=== PATIENT | male | born 1965 | race Caucasian/White ===

== ENCOUNTER 2018-12-17 19:03 | Inpatient (IN) | payer BC, OTHER ==
[2018-12-17 21:40] VITALS: BMI 26.2
--- NOTE | 2018-12-17 22:50 | CP.PCM.HP ---
History of Present Illness - History of Present Illness History of Present Illness: PMD: None Chief Complaint: left side weakness The Patient was seen and examined in the Rehab Unit HPI: The hx is obtained from the patient and after review of the medical records. He is a 53 years old male referred from the [facility] to the [facility] for continued care and rehab. He has no significant hx and was admitted at the [facility] on 12/13/18 with left side weakness and diagnosed with acute CVA. At present he still has weakness to the left face, left upper and lower extremities. No headache, dizziness, nausea, vomits, Palpitation nor SOB. PMH: CVA with left side weakness PSH: Denies SH: Smokes 1.5 PPD for 20 years; Occasional Alcohol use; No illegal drug use FH: Significant for Mother with DM and father with Stroke Allergies: NKDA Medication: Reviewed Present on Admission - Present on Admission Any Indicators Present on Admission: No History of DVT/PE: No History of Uncontrolled Diabetes: No Urinary Catheter: No Decubitus Ulcer Present: No Review of Systems - Constitutional Constitutional: absent: Anorexia, Chills, Fever, Headache - EENT Eyes: Requires Corrective Lenses. absent: Blurred Vision, Floaters Ears: absent: Decreased Hearing, Ear Discharge, Tinnitus Nose/Mouth/Throat: absent: Epistaxis, Post Nasal Drip - Cardiovascular Cardiovascular: absent: Chest Pain, Dyspnea, Edema - Respiratory Respiratory: absent: Cough, Dyspnea, Wheezing, Stridor - Gastrointestinal Gastrointestinal: absent: Abdominal Pain, Constipation, Diarrhea, Nausea, Vomiting - Musculoskeletal Musculoskeletal: Muscle Weakness. absent: Arthralgias, Back Pain - Integumentary Integumentary: absent: Pruritus, Rash, Skin Ulcer, Sores, Striae, Swelling - Neurological Neurological: Focal Weakness, Weakness. absent: Confusion, Dizziness, Numbness, Headaches - Psychiatric Psychiatric: absent: Anxiety, Depression, Panic Attacks - Endocrine Endocrine: absent: Palpitations, Polydipsia, Polyphagia, Polyuria - Hematologic/Lymphatic Hematologic: absent: Easy Bleeding, Easy Bruising Past Patient History - Past Medical History & Family History Past Medical History?: Yes - Past Social History Smoking Status: Heavy Smoker > 10 Cigarettes Daily Chewing Tobacco Use: No Cigar Use: No Alcohol: Occasional Drugs: Denies - CARDIAC Hx Hypertension: Yes - PULMONARY Hx Respiratory Disorders: No - NEUROLOGICAL HX Cerebrovascular Accident: Yes - HEENT Hx HEENT Problems: No - RENAL Hx Chronic Kidney Disease: No - ENDOCRINE/METABOLIC Hx Endocrine Disorders: No - HEMATOLOGICAL/ONCOLOGICAL Hx Blood Disorders: No - INTEGUMENTARY Hx Dermatological Problems: No - MUSCULOSKELETAL/RHEUMATOLOGICAL Hx Musculoskeletal Disorders: No - GASTROINTESTINAL Hx Gastrointestinal Disorders: No - GENITOURINARY/GYNECOLOGICAL Hx Genitourinary Disorders: No - PSYCHIATRIC Hx Psychophysiologic Disorder: No - SURGICAL HISTORY Hx Surgeries: No - ANESTHESIA Hx Anesthesia: No Meds Allergies/Adverse Reactions: Allergies Allergy/AdvReac Type Severity Reaction Status Date / Time No Known Allergies Allergy Verified 12/17/18 21:40 Physical Exam - Constitutional Appears: No Acute Distress - Head Exam Head Exam: ATRAUMATIC - Eye Exam Eye Exam: EOMI, Normal appearance - ENT Exam ENT Exam: Mucous Membranes Moist, Normal Exam - Neck Exam Neck exam: Positive for: Full Rom, Normal Inspection. Negative for: Lymphadenopathy, Tenderness - Respiratory Exam Respiratory Exam: Clear to Auscultation Bilateral. absent: Rales, Rhonchi, Wheezes - Cardiovascular Exam Cardiovascular Exam: REGULAR RHYTHM, RRR, +S1, +S2 - GI/Abdominal Exam GI & Abdominal Exam: Normal Bowel Sounds, Soft. absent: Mass, Organomegaly, Tenderness - Rectal Exam Rectal Exam: Deferred - Extremities Exam Extremities exam: Positive for: normal inspection. Negative for: full ROM, joint swelling - Back Exam Back exam: NORMAL INSPECTION. absent: CVA tenderness (L), CVA tenderness (R) - Neurological Exam Additional comments: Awake and alert and oriented. Left facial droop with tongue deviated to the left Motor strength 0/5 at the left upper extremity with the lower extremity 3/5 - Psychiatric Exam Psychiatric exam: Normal Affect, Normal Mood - Skin Skin Exam: Dry, Intact, Normal Color, Warm Results - Imaging and Cardiology MRI - head Status: Report reviewed by me Additional comment: Recent Infarct in right bundy radiata. Old lacunar infarct also seen. Assessment & Plan - Assessment and Plan (Free Text) Plan: 53 years old male referred from the [facility] to the [facility] for continued care and rehab. He has no significant hx and was admitted at the [facility] on 12/13/18 with left side weakness and diagnosed with acute CVA. At present he still has weakness to the left face, left upper and lower extremities. No headache, dizziness, nausea, vomits, Palpitation nor SOB. #. Acute CVA - Consult Physiatry Dr Mora - ASA - Lipitor - OT/PT #. HTN - Lisinopril- Amlodipine - Follow Blood pressures #. Nicotine addiction - Nicotine Patch #. DVT prophylaxis with Lovenox #. Code Status: Full - Date & Time Date: 12/17/18 Time: 22:50
[2018-12-18 06:22] LABS: BASO % 0.5 % (0.0-2.0); EOS # 0.1 K/uL (0.0-0.7); EOS % 1.7 % (0.0-4.0); HEMOGLOBIN 11.1 g/dL (12.0-18.0); LYMPH # 2.8 K/uL (1.0-4.3); LYMPH % 37.8 % (20.0-40.0); MEAN CELL VOLUME 87.8 fl (80.0-94.0); MEAN CORPUSCULAR HEMOGLOBIN 28.5 pg (27.0-31.0); MEAN CORPUSCULAR HGB CONC 32.5 g/dL (33.0-37.0); MONO # 0.8 K/uL (0.0-0.8); MONO % 10.7 % (0.0-10.0); NEUT # 3.7 K/uL (1.8-7.0); NEUT % 49.3 % (50.0-75.0); NRBC % 0.2 % (0.0-0.0); RBC 3.91 Mil/uL (4.40-5.90); RED CELL DISTRIBUTION WIDTH 15.4 % (11.5-14.5); WHITE BLOOD COUNT 7.5 K/uL (4.8-10.8)
[2018-12-18 06:35] LABS: PROTHROMBIN TIME 11.9 Seconds (9.8-13.1)
[2018-12-18 06:39] LABS: PARTIAL THROMBOPLASTIN TIME 28.9 Seconds (25.6-37.1)
[2018-12-18 06:42] LABS: BLOOD UREA NITROGEN 18 mg/dl (9-20); CALCIUM 9.5 mg/dL (8.4-10.2); GFR NON-AFRICAN AMERICAN > 60
[2018-12-18] MEDS: Enoxaparin 40 mg Syringe SC SCH (09:38)
--- NOTE | 2018-12-18 14:58 | PCM.OPOC ---
Physiatry Overall Plan of Care - Overall Plan of Care Estimated Length of Stay in Weeks: 3 Rehab Impairment: Mobility, Gait, Cognition, Speech, Balance, Coordination Etiologic Diagnosis: Cerebrovascular Accident Rehab/Medical Prognosis: Fair - Anticipated Interventions Physical Therapy:: Yes Occupational Therapy:: Yes Speech Therapy:: Yes Recreational Therapy:: Yes - Therapy Goals Bed Mobility: Supervision Ambulation: Contact Guard Functional Positional Changes:: Independent - Functional Outcomes Functional Outcomes: fair - Discharge Plan Identification of Barriers to Discharge: Cognition Discharge Destination: Home
--- NOTE | 2018-12-18 15:12 | CP.PCM.CON ---
History of Present Illness - History of Present Illness History of Present Illness: 53 year old male with left hemiplegia due to Cva admitted for acute rehab Review of Systems - Neurological Neurological: Abnormal Gait, Lack of Coordination Past Patient History - Past Medical History & Family History Past Medical History?: Yes - Past Social History Smoking Status: Heavy Smoker > 10 Cigarettes Daily Chewing Tobacco Use: No Cigar Use: No Alcohol: Occasional Drugs: Denies - CARDIAC Hx Hypertension: Yes - PULMONARY Hx Respiratory Disorders: No - NEUROLOGICAL HX Cerebrovascular Accident: Yes - HEENT Hx HEENT Problems: No - RENAL Hx Chronic Kidney Disease: No - ENDOCRINE/METABOLIC Hx Endocrine Disorders: No - HEMATOLOGICAL/ONCOLOGICAL Hx Blood Disorders: No - INTEGUMENTARY Hx Dermatological Problems: No - MUSCULOSKELETAL/RHEUMATOLOGICAL Hx Musculoskeletal Disorders: No - GASTROINTESTINAL Hx Gastrointestinal Disorders: No - GENITOURINARY/GYNECOLOGICAL Hx Genitourinary Disorders: No - PSYCHIATRIC Hx Psychophysiologic Disorder: No - SURGICAL HISTORY Hx Surgeries: No - ANESTHESIA Hx Anesthesia: No Meds Allergies/Adverse Reactions: Allergies Allergy/AdvReac Type Severity Reaction Status Date / Time No Known Allergies Allergy Verified 12/17/18 21:40 - Medications Medications: Current Medications Amlodipine Besylate (Norvasc) 10 mg PO DAILY [facility] Last Admin: 12/18/18 09:37 Dose: 10 mg Aspirin (Ecotrin) 81 mg PO DAILY [facility] Last Admin: 12/18/18 09:38 Dose: 81 mg Atorvastatin Calcium (Lipitor) 80 mg PO HS [facility] Docusate Sodium (Colace) 100 mg PO BID [facility] Last Admin: 12/18/18 09:37 Dose: 100 mg Enoxaparin Sodium (Lovenox) 40 mg SC DAILY [facility]; Protocol Last Admin: 12/18/18 09:38 Dose: 40 mg Ferrous Sulfate (Feosol) 325 mg PO BID [facility] Last Admin: 12/18/18 09:38 Dose: 325 mg Lisinopril (Zestril) 20 mg PO DAILY [facility] Last Admin: 12/18/18 09:37 Dose: 20 mg Nicotine (Nicoderm Cq) 1 patch TD DAILY [facility] Last Admin: 12/18/18 09:36 Dose: 1 patch Temazepam (Restoril) 15 mg PO HS PRN PRN Reason: Insomnia Last Admin: 12/17/18 23:41 Dose: 15 mg Physical Exam - Constitutional Appears: Well - Head Exam Head Exam: ATRAUMATIC, NORMAL INSPECTION, NORMOCEPHALIC - Eye Exam Eye Exam: EOMI, Normal appearance, PERRL Pupil Exam: NORMAL ACCOMODATION, PERRL - ENT Exam ENT Exam: Mucous Membranes Moist, Normal Exam - Neck Exam Neck exam: Positive for: Normal Inspection - Respiratory Exam Respiratory Exam: Clear to Auscultation Bilateral, NORMAL BREATHING PATTERN - Cardiovascular Exam Cardiovascular Exam: REGULAR RHYTHM - GI/Abdominal Exam GI & Abdominal Exam: Normal Bowel Sounds - Rectal Exam Rectal Exam: NORMAL INSPECTION - Exam External exam: NORMAL EXTERNAL EXAM - Extremities Exam Extremities exam: Positive for: normal inspection - Back Exam Back exam: NORMAL INSPECTION Additional comments: left arm and left leg weakness muscle strength trace - Neurological Exam Neurological exam: Alert - Psychiatric Exam Psychiatric exam: Normal Mood - Skin Skin Exam: Intact Results - Vital Signs Recent Vital Signs: Last Vital Signs Temp 97.7 F 12/18/18 07:38 Pulse 79 12/18/18 09:37 Resp 20 12/18/18 07:38 BP 108/79 12/18/18 09:37 Pulse Ox 96 12/18/18 07:38 - Labs Result Diagrams: 12/18/18 05:25 12/18/18 05:25 Labs: Laboratory Results - last 24 hr 12/18/18 12/18/18 12/18/18 05:25 05:25 05:25 WBC 7.5 RBC 3.91 L Hgb 11.1 L Hct 34.3 L MCV 87.8 MCH 28.5 MCHC 32.5 L RDW 15.4 H Plt Count 459 H MPV 7.0 L Neut % (Auto) 49.3 L Lymph % (Auto) 37.8 Dickson % (Auto) 10.7 H Eos % (Auto) 1.7 Baso % (Auto) 0.5 Neut # (Auto) 3.7 Lymph # (Auto) 2.8 Dickson # (Auto) 0.8 Eos # (Auto) 0.1 Baso # (Auto) 0.0 PT 11.9 INR 1.0 APTT 28.9 Sodium 138 Potassium 3.9 Chloride 101 Carbon Dioxide 29 Anion Gap 12 BUN 18 Creatinine 0.8 Est GFR ( Amer) > 60 Est GFR (Non-Af Amer) > 60 Random Glucose 100 Calcium 9.5 Assessment & Plan (1) CVA (cerebral vascular accident) Assessment and Plan: left hemiplegia due to Cva plan for physical, occupational, rec and speech therapy Status: Acute
--- NOTE | 2018-12-18 15:16 | CP.PCM.PN ---
Subjective - Date & Time of Evaluation Date of Evaluation: 12/18/18 Time of Evaluation: 13:00 - Subjective Subjective: patient freindly complaints of left arm and leg weakness Objective - Vital Signs/Intake and Output Vital Signs (last 24 hours): Temp Pulse Resp BP Pulse Ox 97.7 F 79 20 108/79 96 12/18/18 07:38 12/18/18 09:37 12/18/18 07:38 12/18/18 09:37 12/18/18 07:38 - Medications Medications: Current Medications Amlodipine Besylate (Norvasc) 10 mg PO DAILY [facility] Last Admin: 12/18/18 09:37 Dose: 10 mg Aspirin (Ecotrin) 81 mg PO DAILY [facility] Last Admin: 12/18/18 09:38 Dose: 81 mg Atorvastatin Calcium (Lipitor) 80 mg PO HS [facility] Docusate Sodium (Colace) 100 mg PO BID [facility] Last Admin: 12/18/18 09:37 Dose: 100 mg Enoxaparin Sodium (Lovenox) 40 mg SC DAILY [facility]; Protocol Last Admin: 12/18/18 09:38 Dose: 40 mg Ferrous Sulfate (Feosol) 325 mg PO BID [facility] Last Admin: 12/18/18 09:38 Dose: 325 mg Lisinopril (Zestril) 20 mg PO DAILY [facility] Last Admin: 12/18/18 09:37 Dose: 20 mg Nicotine (Nicoderm Cq) 1 patch TD DAILY [facility] Last Admin: 12/18/18 09:36 Dose: 1 patch Temazepam (Restoril) 15 mg PO HS PRN PRN Reason: Insomnia Last Admin: 12/17/18 23:41 Dose: 15 mg - Labs Labs: 12/18/18 05:25 12/18/18 05:25 PT 11.9 Seconds (9.8-13.1) 12/18/18 05:25 INR 1.0 12/18/18 05:25 APTT 28.9 Seconds (25.6-37.1) 12/18/18 05:25 - Constitutional Appears: Well - Head Exam Head Exam: ATRAUMATIC, NORMAL INSPECTION, NORMOCEPHALIC - Eye Exam Eye Exam: EOMI, Normal appearance, PERRL Pupil Exam: NORMAL ACCOMODATION - ENT Exam ENT Exam: Mucous Membranes Moist, Normal Exam - Neck Exam Neck Exam: Full ROM, Normal Inspection - Respiratory Exam Respiratory Exam: Clear to Ausculation Bilateral, NORMAL BREATHING PATTERN - Cardiovascular Exam Cardiovascular Exam: REGULAR RHYTHM - GI/Abdominal Exam GI & Abdominal Exam: Soft, Normal Bowel Sounds - Rectal Exam Rectal Exam: NORMAL INSPECTION - Exam External exam: NORMAL EXTERNAL EXAM - Extremities Exam Extremities Exam: Full ROM, Normal Capillary Refill - Back Exam Back Exam: NORMAL INSPECTION - Neurological Exam Neurological Exam: Alert, Awake Neuro motor strength exam: Left Upper Extremity: 0, Left Lower Extremity: 2/1 - Psychiatric Exam Psychiatric exam: Normal Affect, Normal Mood - Skin Skin Exam: Dry, Intact Assessment and Plan (1) CVA (cerebral vascular accident) Assessment & Plan: plan for physical, occupational rec and speech therapy electric stim Status: Acute
[2018-12-19] MEDS: Enoxaparin 40 mg Syringe SC SCH (08:10)
[2018-12-20] MEDS: Enoxaparin 40 mg Syringe SC SCH (08:18)
[2018-12-21] MEDS ORDERED: Alum-Mag Hydrox-Simethicone Susp (30 mL) PO ONE (02:13)
[2018-12-21 08:34] LABS: HEMOGLOBIN 12.2 g/dL (12.0-18.0); MEAN CELL VOLUME 88.3 fl (80.0-94.0); MEAN CORPUSCULAR HEMOGLOBIN 28.2 pg (27.0-31.0); MEAN CORPUSCULAR HGB CONC 31.9 g/dL (33.0-37.0); RBC 4.32 Mil/uL (4.40-5.90); RED CELL DISTRIBUTION WIDTH 15.9 % (11.5-14.5); WHITE BLOOD COUNT 8.3 K/uL (4.8-10.8)
[2018-12-21 08:44] LABS: BLOOD UREA NITROGEN 16 mg/dl (9-20); CALCIUM 9.2 mg/dL (8.4-10.2); GFR NON-AFRICAN AMERICAN > 60
[2018-12-21] MEDS: Enoxaparin 40 mg Syringe SC SCH (08:44)
--- NOTE | 2018-12-21 13:06 | CP.PCM.PN ---
<Francesca Dubon - Last Filed: 12/21/18 13:08> Subjective - Date & Time of Evaluation Date of Evaluation: 12/21/18 Time of Evaluation: 13:04 - Subjective Subjective: Patient seen and examined at bedside. Patient reports feeling well and denies any active complaints. Reports regular BM and good appetite. Denies chest pain, shortness of breath, abdominal pain, dysuria, constipation or diarrhea. Patient is actively participating in therapy. Objective - Vital Signs/Intake and Output Vital Signs (last 24 hours): Temp Pulse Resp BP Pulse Ox 97.7 F 89 20 123/65 99 12/21/18 07:57 12/21/18 08:56 12/21/18 07:57 12/21/18 08:46 12/21/18 07:57 - Medications Medications: Current Medications Amlodipine Besylate (Norvasc) 10 mg PO DAILY [facility] Last Admin: 12/21/18 08:45 Dose: 10 mg Aspirin (Ecotrin) 81 mg PO DAILY [facility] Last Admin: 12/21/18 08:44 Dose: 81 mg Atorvastatin Calcium (Lipitor) 80 mg PO HS [facility] Last Admin: 12/20/18 21:40 Dose: 80 mg Docusate Sodium (Colace) 100 mg PO BID [facility] Last Admin: 12/21/18 08:44 Dose: 100 mg Enoxaparin Sodium (Lovenox) 40 mg SC DAILY [facility]; Protocol Last Admin: 12/21/18 08:44 Dose: 40 mg Ferrous Sulfate (Feosol) 325 mg PO BID [facility] Last Admin: 12/21/18 08:45 Dose: 325 mg Lisinopril (Zestril) 20 mg PO DAILY [facility] Last Admin: 12/21/18 08:46 Dose: 20 mg Nicotine (Nicoderm Cq) 1 patch TD DAILY [facility] Last Admin: 12/21/18 08:45 Dose: 1 patch Temazepam (Restoril) 30 mg PO HS PRN PRN Reason: Insomnia Last Admin: 12/20/18 21:49 Dose: 30 mg - Labs Labs: 12/21/18 07:45 12/21/18 07:45 PT 11.9 Seconds (9.8-13.1) 12/18/18 05:25 INR 1.0 12/18/18 05:25 APTT 28.9 Seconds (25.6-37.1) 12/18/18 05:25 - Constitutional Appears: Well, Non-toxic, No Acute Distress - Eye Exam Eye Exam: Normal appearance - ENT Exam ENT Exam: Mucous Membranes Moist - Respiratory Exam Respiratory Exam: Clear to Ausculation Bilateral, NORMAL BREATHING PATTERN. absent: Accessory Muscle Use, Chest Wall Tenderness, Decreased Breath Sounds, Prolonged Expiratory Phase, Rales, Rhonchi, Wheezes, Respiratory Distress, Stridor - Cardiovascular Exam Cardiovascular Exam: REGULAR RHYTHM, RRR, +S1, +S2. absent: Clicks, JVD, Rubs, +S4, Murmur - GI/Abdominal Exam GI & Abdominal Exam: Soft, Normal Bowel Sounds. absent: Distended, Firm, Guarding, Rigid, Tenderness, Rebound - Extremities Exam Extremities Exam: Normal Capillary Refill, Normal Inspection. absent: Joint Swelling, Pedal Edema, Tenderness - Neurological Exam Neurological Exam: Alert, Awake Neuro motor strength exam: Left Upper Extremity: 3, Right Upper Extremity: 5, Left Lower Extremity: 3, Right Lower Extremity: 5 - Skin Skin Exam: Dry, Intact, Normal Color, Warm Assessment and Plan - Assessment and Plan (Free Text) Assessment: 53 years old male referred from the [facility] to the [facility] for continued care and rehab. He has no significant hx and was admitted at the [facility] on 12/13/18 with left side weakness and diagnosed with acute CVA. At present he still has weakness to the left face, left upper and lower extremities. Plan: 1. Acute CVA - continue therapy - ASA - Lipitor 2. HTN - Lisinopril- Amlodipine - Follow Blood pressures 3. Nicotine addiction - Nicotine Patch 4. DVT prophylaxis with Lovenox 5. Code Status: Full code <Hyacinth Casas - Last Filed: 12/21/18 17:55> Objective - Vital Signs/Intake and Output Vital Signs (last 24 hours): Temp Pulse Resp BP Pulse Ox 97.7 F 89 20 123/65 99 12/21/18 07:57 12/21/18 08:56 12/21/18 07:57 12/21/18 08:46 12/21/18 07:57 - Medications Medications: Current Medications Amlodipine Besylate (Norvasc) 10 mg PO DAILY [facility] Last Admin: 12/21/18 08:45 Dose: 10 mg Aspirin (Ecotrin) 81 mg PO DAILY [facility] Last Admin: 12/21/18 08:44 Dose: 81 mg Atorvastatin Calcium (Lipitor) 80 mg PO HS [facility] Last Admin: 12/20/18 21:40 Dose: 80 mg Docusate Sodium (Colace) 100 mg PO BID [facility] Last Admin: 12/21/18 17:23 Dose: 100 mg Enoxaparin Sodium (Lovenox) 40 mg SC DAILY [facility]; Protocol Last Admin: 12/21/18 08:44 Dose: 40 mg Ferrous Sulfate (Feosol) 325 mg PO BID [facility] Last Admin: 12/21/18 17:23 Dose: 325 mg Lisinopril (Zestril) 20 mg PO DAILY [facility] Last Admin: 12/21/18 08:46 Dose: 20 mg Nicotine (Nicoderm Cq) 1 patch TD DAILY [facility] Last Admin: 12/21/18 08:45 Dose: 1 patch Temazepam (Restoril) 30 mg PO HS PRN PRN Reason: Insomnia Last Admin: 12/20/18 21:49 Dose: 30 mg - Labs Labs: 12/21/18 07:45 12/21/18 07:45 PT 11.9 Seconds (9.8-13.1) 12/18/18 05:25 INR 1.0 12/18/18 05:25 APTT 28.9 Seconds (25.6-37.1) 12/18/18 05:25 Attending/Attestation - Attestation I have personally seen and examined this patient.: Yes I have fully participated in the care of the patient.: Yes I have reviewed all pertinent clinical information, including history, physical exam and plan: Yes
[2018-12-22] MEDS ORDERED: Alum-Mag Hydrox-Simethicone Susp (30 mL) PO ONE (00:55)
[2018-12-22] MEDS: Enoxaparin 40 mg Syringe SC SCH (09:06)
[2018-12-22] MEDS: Alum-Mag Hydrox-Simethicone Susp (30 mL) PO PRN (21:05)
[2018-12-23] MEDS: Enoxaparin 40 mg Syringe SC SCH (09:10)
--- NOTE | 2018-12-23 12:22 | PCM.PSYTMC ---
Acute Rehab Team Conference - - Vital Signs: Vital Signs (Last 8 Hours): Vital Signs 12/23/18 12/23/18 12/23/18 09:00 09:10 09:11 Temperature 98 F 98.0 F Pulse Rate 94 H 94 H 94 H Respiratory 20 20 Rate Blood Pressure 119/66 119/66 119/66 O2 Sat by Pulse 99 Oximetry 12/23/18 09:12 Temperature Pulse Rate 94 H Respiratory Rate Blood Pressure 119/66 O2 Sat by Pulse Oximetry Pain: 0 - Precautions: Precautions: Fall Prevention - Consults: Comment: jose juan - Toileting: Toileting: Moderate Assistance - Bladder Management: Bladder Pattern: Normal Voiding Method: Urinal Bladder Management: Independent - Transfers: Transfers: Moderate Assistance - ADL's: ADL's: Moderate Assistance - Patient/Family Teaching: Other Intervention:: safety - Provider: Registered Nurse:: Carolina Gray Physical Therapy - Bed Mobility Bed Mobility: Contact Guard - Transfers Wheelchair to Mat: Minimal Assistance Sit to Stand: Contact Guard - Ambulation Level of Assistance: Contact Guard, Minimal Assistance Distance (ft.): 115 Assistive Devices: Narrow base quad cane - Stair Negotiation Stairs: Level of Assistance: Minimal Assistance Number of Stairs: 6 Handrails: Right - Standing Balance Static Stand: Contact Guard Assist - Pain Pain (assessed during therapy session): 0 - Insight/Carryover Insight/Carryover: Good - Patient/Family Education Comment: CVA recovery, safety, POC - Assessment/Plan Assessment: t participated in 90 minute PT tx sessions focusing on BLE strengthening exercises, balance and endurance activities, and functional mobility training. Pt requires cga/min A for ambulation with NBQC. Pt will continue to benefit from skilled PT interventions to address deficits, reduce fall risk, and maximize functional independence. - Goals Timeframe: 3 weeks Goals: Sit < > supine mod I. Sit < > stand transfers mod I. Pt will ambulate 150 ft with NBQC and supervision. Pt will ascend/descend flight of stairs with handrail and supervision - Provider Physical Therapist:: Madeline Rincon License Number:: [id number] Occupational Therapy - Arousal/Attention/Orientation Level of Consciousness: Awake, Alert Patient Orientation: Person, Place, Time, Appropriate to Age, Appropriate to Situation, Disoriented Assessment Comment: -anxious and concern about overall function and implications for future. -pt provided with emotional support and reassuarnec - ADL/IADL Self Feeding: Supervision, Verbal Cues, Set-up Help Grooming: Supervision, Verbal Cues, Set-up Help Dressing-Upper Ext: Verbal Cues, Contact Guard, Minimal Assistance Dressing-Lower Ext: Verbal Cues, Set-up Help, Contact Guard, Minimal Assistance Comment: -pt uses reanna-techniques for upper/lower body dressing, dressing L side first - Sitting Balance Static Sitting: Supervision Dynamic Sitting: Reaches across midline, Reaches out of base of support, Reaches within base of support, Contact Guard Assist Comment: seated unsupported - Transfers Wheelchair to Bed Transfers: Verbal Cues, Minimal Assistance Toilet Transfers: Verbal Cues, Minimal Assistance Comment: shower transfer: TBA - Wheelchair Management Level of Assistance: Verbal Cues, Set-up Help, Minimal Assistance Distance (ft.): 50 - Upper Extremity Status Right Upper Extremity Comment: P/ARROM is WFLS--strength 5/5 Left Upper Extremity Comment: PROM is WFLS: L shoulder flex: 2/5, abd 2/5. L shoulder elevators: 3-/5. L elbow flex: 3-/5, L elbow extension 2+/5. L forearm supination/pronation: 2/5. L wrist/digit-trace, 1/5. +flexion synergy patttern - Pain Pain (assessed during therapy session): 0 - Insight/Carryover Insight/Carryover: Good - Patient/Family Education Comment: -rehab/OT goals, plan of care. -adl partcipation in recovery process. -functional transfers/mobility/self care using compensatory stategies. -w/c management/propulsion. -RUE management/HEP. -safety--use of call for assistance. -energy conservation/work simplification strategies. -stroke handout - Assessment/Plan Assessment: Patient is a53 year old male with dx: acute CVA. *Precautions: falls(w/c & bed alarms), cardiac, safety. Pt with the following impairments: - impaired motor control/strength LUE/LLE. -impaired balance/postural control. - impaired safety awareness. -impaired activity tolerance/endurance. -impaired overall strength--which impact on function in self care, transfers/mobility and Iadls. Pt will continue to benefit from skilled Occupational Therapy to address functional impairments, maxmize function in self care, transfers/mobility using adaptive/compensatory strategies, increase RUE strength/motor control/coordination. Will continue to trial E-stim to increase motor control in LUE. Pt demonstrates increased strength in R shoulder flexion, eelbow flexion/extension(against garvity), shoulder elevation(against gravity), forearm supination/pronation, however no wrist or digit AROMnoted at this time. Pt uses flexion synergy pattern, thus will focus on isolating movements for normal patterns/function. *Goal: Mod I for self care, transfers/mobility and Iadls with assistive device - Goals Timeframe: 8 days Comment: -FEEDING:Mod I. -GROOMING: I/setup. -UPPER BODY DRESSING: I/setup--reanna techniques prn. -LOWER BODY DRESSING:Supervision/setup. - TOILETING: Supervision. -BATHING: min assist and verbal cues seated. -TRANSFERS:<->bed, commode, w/c and other surfaces with CS/Supervsiion and verbal cues. -W/C MANAGEMENT/PROPULSION: 150 feet with Mod I, manage B w/c brakes with Mod I. -GATHER/TRANSPORTS ITEMS: CS and verbal cues with assistive device prn - Provider Occupational Therapist:: Ariela Madden License Number: [id number] Speech Therapy - Consult Information Patient on Program: Yes Medical Diagnosis: CVA Treatment Diagnosis: functional oropharyngeal swallow; minimal L facial droop - Assessment Comment: WFL - Plan Assessment: Tatiana Flynn presents with functional oral swallow and pharyngeal swallow judged to be WFL; he is tolerating current diet of regular solids and thin liquids without overt difficulty. Pt with minimal L facial droop, though is able to complete oral motor exercises independently. Therefore, pt will be discharged from dysphagia tx at this time; discharge instructions, safe swallow strategies, and home exercise program were discussed with the pt with reciprocal comprehension verbally expressed. Plan: Discharge Dysphagia Therapy Recommendations: Discharge dysphagia tx; continue regular diet with thin liquids - Provider Therapist: Sandi Sanchez License Number: [id number] Recreational Therapy - Participation Participation: Participates in Individual and/or Group Sessions - Attendance Attendance: 3-5 times per week - Activities Leisure Activities: Cards and Games - Socialization Level of Socialization: Initiates/interacts freely with care givers and peer - Assessment Assessment/Plan: Pt is agreeable to participate in 1:1 recreation therapy sessions following encouragement. Pt was oriented to multiple-step direction following related leisure tasks such as connect four and kings in the corner card task. Pt requires min verbal cues at times for error recognition. Pt demonstrates improved carryover of task rules, turn taking, and arousal level. Pt would benefit from continued participation in recreation therapy sessions to improve activity tolerance level, direction following, and overall mood state. Problems Currently Limiting Participation: L side UE and LE weakness, decrease leisure awareness level Goals and Time Frame: Pt will be encouraged to participate in 1:1 and group recreation therapy sessions 3-5x week to improve activity tolerance level, leisure awareness level, direction following, and overall mood state. - Provider Therapist: Mavis Rehman Nutrition - Current Diet Current Diet/Supplement/Feedings: Heart healthy thin liquids. no pork as per patient's request - Appetite Percent Meal Consumed: 50-74% - Assessment/Goals/Time Frame Assessments/Goals/Time Frame: Pt at moderate nutritional risk. goal: 1. Pt to consume 75-100% of meals. Follow-up due on 12/25/2018 - Provider Provider: Qian Alonzo Case Management - Psychosocial Assessment Support Systems: Susan Flynn ()- [phone] Psychological Interventions/Needs: Patient is AAOx3 and able to verbalize needs. Discharge Concerns: Patient's RUE is flacid at this time and patient is right handed. Patient/Family Meetin. Goal: Modified Independent 2. Plan: home with VNS pending progress 3. DME needs 4. f/u appts 5. work with patient on solidifying a PMD 6. caregiver training with daughter? 7. continued emotional support - Provider Provider: Zuleima Horn License Number: [id number] Rehabilitation Plan - Treatment Plan Treatment Plan: Physical Therapy, Occupational Therapy, Speech, Dietary, Patient/Family Education - Recommendation Recommendation: Physical Therapy, Occupational Therapy, Speech, Dietary, Patient/Family Education - Discharge Plan Discharge to: Home (Dc with family at present jan 02 dc later if possible)
--- NOTE | 2018-12-23 13:01 | CP.PCM.PN ---
Subjective - Date & Time of Evaluation Date of Evaluation: 12/19/18 Time of Evaluation: 11:00 - Subjective Subjective: no acute complaints at present Objective - Vital Signs/Intake and Output Vital Signs (last 24 hours): Temp Pulse Resp BP Pulse Ox 98.0 F 94 H 20 119/66 99 12/23/18 09:10 12/23/18 09:12 12/23/18 09:10 12/23/18 09:12 12/23/18 09:10 - Medications Medications: Current Medications Al Hydrox/Mg Hydrox/Simethicone (Maalox Plus 30 Ml) 30 ml PO Q6 PRN PRN Reason: Indigestion / Heartburn Last Admin: 12/22/18 21:05 Dose: 30 ml Amlodipine Besylate (Norvasc) 10 mg PO DAILY [facility] Last Admin: 12/23/18 09:11 Dose: Not Given Aspirin (Ecotrin) 81 mg PO DAILY [facility] Last Admin: 12/23/18 09:10 Dose: 81 mg Atorvastatin Calcium (Lipitor) 80 mg PO HS [facility] Last Admin: 12/22/18 21:06 Dose: 80 mg Docusate Sodium (Colace) 100 mg PO BID [facility] Last Admin: 12/23/18 09:09 Dose: 100 mg Enoxaparin Sodium (Lovenox) 40 mg SC DAILY [facility]; Protocol Last Admin: 12/23/18 09:10 Dose: 40 mg Ferrous Sulfate (Feosol) 325 mg PO BID [facility] Last Admin: 12/23/18 09:10 Dose: 325 mg Lisinopril (Zestril) 20 mg PO DAILY [facility] Last Admin: 12/23/18 09:12 Dose: Not Given Nicotine (Nicoderm Cq) 1 patch TD DAILY [facility] Last Admin: 12/23/18 09:10 Dose: 1 patch Temazepam (Restoril) 30 mg PO HS PRN PRN Reason: Insomnia Last Admin: 12/22/18 22:24 Dose: 30 mg - Labs Labs: 12/21/18 07:45 12/21/18 07:45 PT 11.9 Seconds (9.8-13.1) 12/18/18 05:25 INR 1.0 12/18/18 05:25 APTT 28.9 Seconds (25.6-37.1) 12/18/18 05:25 - Constitutional Appears: Well - Head Exam Head Exam: ATRAUMATIC, NORMAL INSPECTION, NORMOCEPHALIC - Eye Exam Eye Exam: EOMI, Normal appearance, PERRL Pupil Exam: NORMAL ACCOMODATION - ENT Exam ENT Exam: Mucous Membranes Moist, Normal Exam - Neck Exam Neck Exam: Full ROM, Normal Inspection - Respiratory Exam Respiratory Exam: Clear to Ausculation Bilateral, NORMAL BREATHING PATTERN - Cardiovascular Exam Cardiovascular Exam: REGULAR RHYTHM - GI/Abdominal Exam GI & Abdominal Exam: Soft, Normal Bowel Sounds - Rectal Exam Rectal Exam: NORMAL INSPECTION - Extremities Exam Extremities Exam: Full ROM, Normal Capillary Refill, Normal Inspection - Back Exam Back Exam: NORMAL INSPECTION - Neurological Exam Neurological Exam: Alert, Awake Neuro motor strength exam: Left Upper Extremity: 2/1, Left Lower Extremity: 2/1 - Psychiatric Exam Psychiatric exam: Normal Affect, Normal Mood - Skin Skin Exam: Dry, Intact Assessment and Plan (1) CVA (cerebral vascular accident) Assessment & Plan: plan for PT, OT rec and ST Status: Acute
--- NOTE | 2018-12-23 13:03 | CP.PCM.PN ---
Subjective - Date & Time of Evaluation Date of Evaluation: 12/22/18 Time of Evaluation: 13:00 - Subjective Subjective: no acute complaints of pain Objective - Vital Signs/Intake and Output Vital Signs (last 24 hours): Temp Pulse Resp BP Pulse Ox 98.0 F 94 H 20 119/66 99 12/23/18 09:10 12/23/18 09:12 12/23/18 09:10 12/23/18 09:12 12/23/18 09:10 - Medications Medications: Current Medications Al Hydrox/Mg Hydrox/Simethicone (Maalox Plus 30 Ml) 30 ml PO Q6 PRN PRN Reason: Indigestion / Heartburn Last Admin: 12/22/18 21:05 Dose: 30 ml Amlodipine Besylate (Norvasc) 10 mg PO DAILY [facility] Last Admin: 12/23/18 09:11 Dose: Not Given Aspirin (Ecotrin) 81 mg PO DAILY [facility] Last Admin: 12/23/18 09:10 Dose: 81 mg Atorvastatin Calcium (Lipitor) 80 mg PO HS [facility] Last Admin: 12/22/18 21:06 Dose: 80 mg Docusate Sodium (Colace) 100 mg PO BID [facility] Last Admin: 12/23/18 09:09 Dose: 100 mg Enoxaparin Sodium (Lovenox) 40 mg SC DAILY [facility]; Protocol Last Admin: 12/23/18 09:10 Dose: 40 mg Ferrous Sulfate (Feosol) 325 mg PO BID [facility] Last Admin: 12/23/18 09:10 Dose: 325 mg Lisinopril (Zestril) 20 mg PO DAILY [facility] Last Admin: 12/23/18 09:12 Dose: Not Given Nicotine (Nicoderm Cq) 1 patch TD DAILY [facility] Last Admin: 12/23/18 09:10 Dose: 1 patch Temazepam (Restoril) 30 mg PO HS PRN PRN Reason: Insomnia Last Admin: 12/22/18 22:24 Dose: 30 mg - Labs Labs: 12/21/18 07:45 12/21/18 07:45 PT 11.9 Seconds (9.8-13.1) 12/18/18 05:25 INR 1.0 12/18/18 05:25 APTT 28.9 Seconds (25.6-37.1) 12/18/18 05:25 - Constitutional Appears: Well - Head Exam Head Exam: ATRAUMATIC, NORMAL INSPECTION, NORMOCEPHALIC - Eye Exam Eye Exam: EOMI, Normal appearance, PERRL Pupil Exam: NORMAL ACCOMODATION - ENT Exam ENT Exam: Mucous Membranes Moist, Normal Exam - Neck Exam Neck Exam: Full ROM, Normal Inspection - Respiratory Exam Respiratory Exam: NORMAL BREATHING PATTERN - Cardiovascular Exam Cardiovascular Exam: REGULAR RHYTHM - GI/Abdominal Exam GI & Abdominal Exam: Soft, Normal Bowel Sounds - Rectal Exam Rectal Exam: NORMAL INSPECTION - Exam External exam: NORMAL EXTERNAL EXAM - Extremities Exam Extremities Exam: Full ROM, Normal Capillary Refill - Back Exam Back Exam: NORMAL INSPECTION - Neurological Exam Neurological Exam: Alert, Awake Neuro motor strength exam: Left Upper Extremity: 2/1, Left Lower Extremity: 2/1 - Psychiatric Exam Psychiatric exam: Normal Affect, Normal Mood - Skin Skin Exam: Dry, Intact Assessment and Plan (1) CVA (cerebral vascular accident) Assessment & Plan: plan for physical, occupational, rec and speech therapy pain eval and skin follow up. Getting return in arm and leg Status: Acute
--- NOTE | 2018-12-23 13:05 | CP.PCM.PN ---
Subjective - Date & Time of Evaluation Date of Evaluation: 12/23/18 Time of Evaluation: 12:00 - Subjective Subjective: no acute complaints of pain, sitting with daughter Objective - Vital Signs/Intake and Output Vital Signs (last 24 hours): Temp Pulse Resp BP Pulse Ox 98.0 F 94 H 20 119/66 99 12/23/18 09:10 12/23/18 09:12 12/23/18 09:10 12/23/18 09:12 12/23/18 09:10 - Medications Medications: Current Medications Al Hydrox/Mg Hydrox/Simethicone (Maalox Plus 30 Ml) 30 ml PO Q6 PRN PRN Reason: Indigestion / Heartburn Last Admin: 12/22/18 21:05 Dose: 30 ml Amlodipine Besylate (Norvasc) 10 mg PO DAILY [facility] Last Admin: 12/23/18 09:11 Dose: Not Given Aspirin (Ecotrin) 81 mg PO DAILY [facility] Last Admin: 12/23/18 09:10 Dose: 81 mg Atorvastatin Calcium (Lipitor) 80 mg PO HS [facility] Last Admin: 12/22/18 21:06 Dose: 80 mg Docusate Sodium (Colace) 100 mg PO BID [facility] Last Admin: 12/23/18 09:09 Dose: 100 mg Enoxaparin Sodium (Lovenox) 40 mg SC DAILY [facility]; Protocol Last Admin: 12/23/18 09:10 Dose: 40 mg Ferrous Sulfate (Feosol) 325 mg PO BID [facility] Last Admin: 12/23/18 09:10 Dose: 325 mg Lisinopril (Zestril) 20 mg PO DAILY [facility] Last Admin: 12/23/18 09:12 Dose: Not Given Nicotine (Nicoderm Cq) 1 patch TD DAILY [facility] Last Admin: 12/23/18 09:10 Dose: 1 patch Temazepam (Restoril) 30 mg PO HS PRN PRN Reason: Insomnia Last Admin: 12/22/18 22:24 Dose: 30 mg - Labs Labs: 12/21/18 07:45 12/21/18 07:45 PT 11.9 Seconds (9.8-13.1) 12/18/18 05:25 INR 1.0 12/18/18 05:25 APTT 28.9 Seconds (25.6-37.1) 12/18/18 05:25 - Constitutional Appears: Well - Head Exam Head Exam: ATRAUMATIC, NORMAL INSPECTION, NORMOCEPHALIC - Eye Exam Eye Exam: EOMI, Normal appearance, PERRL Pupil Exam: NORMAL ACCOMODATION - ENT Exam ENT Exam: Mucous Membranes Moist, Normal Exam - Neck Exam Neck Exam: Full ROM, Normal Inspection - Respiratory Exam Respiratory Exam: NORMAL BREATHING PATTERN - Cardiovascular Exam Cardiovascular Exam: REGULAR RHYTHM - GI/Abdominal Exam GI & Abdominal Exam: Soft, Normal Bowel Sounds - Rectal Exam Rectal Exam: NORMAL INSPECTION - Exam External exam: NORMAL EXTERNAL EXAM - Extremities Exam Extremities Exam: Full ROM, Normal Capillary Refill, Normal Inspection - Back Exam Back Exam: NORMAL INSPECTION - Neurological Exam Neurological Exam: Alert, Awake Neuro motor strength exam: Left Upper Extremity: 2/1, Left Lower Extremity: 3 - Psychiatric Exam Psychiatric exam: Normal Mood - Skin Skin Exam: Dry Assessment and Plan (1) CVA (cerebral vascular accident) Assessment & Plan: status post team, [email or web address] return in arm and leg Dc for JAN 02 but additional days will definately help to gain more goals, possible extension Status: Acute
--- NOTE | 2018-12-23 15:01 | CP.PCM.PN ---
Subjective - Date & Time of Evaluation Date of Evaluation: 12/23/18 Time of Evaluation: 11:00 - Subjective Subjective: Patient seen and examined. Denied any complaint. Objective - Vital Signs/Intake and Output Vital Signs (last 24 hours): Temp Pulse Resp BP Pulse Ox 98.0 F 94 H 20 119/66 99 12/23/18 09:10 12/23/18 09:12 12/23/18 09:10 12/23/18 09:12 12/23/18 09:10 - Medications Medications: Current Medications Al Hydrox/Mg Hydrox/Simethicone (Maalox Plus 30 Ml) 30 ml PO Q6 PRN PRN Reason: Indigestion / Heartburn Last Admin: 12/22/18 21:05 Dose: 30 ml Amlodipine Besylate (Norvasc) 10 mg PO DAILY [facility] Last Admin: 12/23/18 09:11 Dose: Not Given Aspirin (Ecotrin) 81 mg PO DAILY [facility] Last Admin: 12/23/18 09:10 Dose: 81 mg Atorvastatin Calcium (Lipitor) 80 mg PO HS [facility] Last Admin: 12/22/18 21:06 Dose: 80 mg Docusate Sodium (Colace) 100 mg PO BID [facility] Last Admin: 12/23/18 09:09 Dose: 100 mg Enoxaparin Sodium (Lovenox) 40 mg SC DAILY [facility]; Protocol Last Admin: 12/23/18 09:10 Dose: 40 mg Ferrous Sulfate (Feosol) 325 mg PO BID [facility] Last Admin: 12/23/18 09:10 Dose: 325 mg Lisinopril (Zestril) 20 mg PO DAILY [facility] Last Admin: 12/23/18 09:12 Dose: Not Given Nicotine (Nicoderm Cq) 1 patch TD DAILY [facility] Last Admin: 12/23/18 09:10 Dose: 1 patch Temazepam (Restoril) 30 mg PO HS PRN PRN Reason: Insomnia Last Admin: 12/22/18 22:24 Dose: 30 mg - Labs Labs: 12/21/18 07:45 12/21/18 07:45 PT 11.9 Seconds (9.8-13.1) 12/18/18 05:25 INR 1.0 12/18/18 05:25 APTT 28.9 Seconds (25.6-37.1) 12/18/18 05:25 - Constitutional Appears: No Acute Distress - Head Exam Head Exam: ATRAUMATIC - Eye Exam Eye Exam: absent: Scleral icterus - ENT Exam ENT Exam: Mucous Membranes Moist - Neck Exam Neck Exam: absent: Meningismus - Respiratory Exam Respiratory Exam: absent: Rales, Rhonchi, Wheezes, Respiratory Distress - Cardiovascular Exam Cardiovascular Exam: REGULAR RHYTHM, +S1, +S2 - GI/Abdominal Exam GI & Abdominal Exam: Soft. absent: Tenderness - Rectal Exam Rectal Exam: Deferred - Neurological Exam Neurological Exam: Alert, Oriented x3 - Psychiatric Exam Psychiatric exam: Normal Affect - Skin Skin Exam: Dry, Intact Assessment and Plan - Assessment and Plan (Free Text) Assessment: 53 yo male with no significant PMH was [place] [facility] [place] because of acute CVA with left sided weakness. He was transferred to Acute Rehab on 12/17/2018 for continuation of PT/OT. 1. Acute CVA Dr Mora on physiatry consult continue ASA and Lipitor continue PT/OT 2. HTN BP stable continue Lisinopril and Amlodipine 3. DVT prophylaxis continue Lovenox 40mg SC daily
[2018-12-23] MEDS: Alum-Mag Hydrox-Simethicone Susp (30 mL) PO PRN (17:52)
[2018-12-24] MEDS: Alum-Mag Hydrox-Simethicone Susp (30 mL) PO PRN ×2 (00:54→18:30)
[2018-12-24 07:18] LABS: MEAN CELL VOLUME 85.8 fl (80.0-94.0); MEAN CORPUSCULAR HEMOGLOBIN 28.7 pg (27.0-31.0); MEAN CORPUSCULAR HGB CONC 33.5 g/dL (33.0-37.0); RBC 4.19 Mil/uL (4.40-5.90); RED CELL DISTRIBUTION WIDTH 15.8 % (11.5-14.5); WHITE BLOOD COUNT 7.3 K/uL (4.8-10.8)
[2018-12-24 07:29] LABS: BLOOD UREA NITROGEN 20 mg/dl (9-20); CALCIUM 9.5 mg/dL (8.4-10.2); GFR NON-AFRICAN AMERICAN > 60
[2018-12-24] MEDS: Enoxaparin 40 mg Syringe SC SCH (08:13)
--- NOTE | 2018-12-25 08:42 | CP.PCM.CON ---
History of Present Illness - History of Present Illness History of Present Illness: Pt is a 53 year old male admitted to [facility] and referred to the publicity writer for evaluation. Med history positive for acute CVA. Social History: pt lives with . He has two children. Pt reported positive relationships with family members. 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 Ed.Voc: pt raised in [facility], pt graduated HS with two years of University. He came to the [place] twenty years ago. 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 Pt denied a psych history, pt denied a history of alc/sub abuse. Pt reported smoking and poor compliance with medical monitoring. MSE: pt alert, oriented x3. relevant/coherent, no psychosis, affect constricted, mood dsysphoric over his CVA and consequences. Pt spoke of his desire for continued gains and return to his lifestyle. He spoke of reduction in his dysphoria with gains evident. No si no hi ideation. Dx: Adjustment Dx with depression plan: Continued sup therapy- Past Patient History - Past Medical History & Family History Past Medical History?: Yes - Past Social History Smoking Status: Heavy Smoker > 10 Cigarettes Daily Chewing Tobacco Use: No Cigar Use: No Alcohol: Occasional Drugs: Denies - CARDIAC Hx Hypertension: Yes - PULMONARY Hx Respiratory Disorders: No - NEUROLOGICAL HX Cerebrovascular Accident: Yes - HEENT Hx HEENT Problems: No - RENAL Hx Chronic Kidney Disease: No - ENDOCRINE/METABOLIC Hx Endocrine Disorders: No - HEMATOLOGICAL/ONCOLOGICAL Hx Blood Disorders: No - INTEGUMENTARY Hx Dermatological Problems: No - MUSCULOSKELETAL/RHEUMATOLOGICAL Hx Musculoskeletal Disorders: No - GASTROINTESTINAL Hx Gastrointestinal Disorders: No - GENITOURINARY/GYNECOLOGICAL Hx Genitourinary Disorders: No - PSYCHIATRIC Hx Psychophysiologic Disorder: No - SURGICAL HISTORY Hx Surgeries: No - ANESTHESIA Hx Anesthesia: No Meds Allergies/Adverse Reactions: Allergies Allergy/AdvReac Type Severity Reaction Status Date / Time No Known Allergies Allergy Verified 12/17/18 21:40 - Medications Medications: Current Medications Al Hydrox/Mg Hydrox/Simethicone (Maalox Plus 30 Ml) 30 ml PO Q6 PRN PRN Reason: Indigestion / Heartburn Last Admin: 12/24/18 18:30 Dose: 30 ml Amlodipine Besylate (Norvasc) 10 mg PO DAILY [facility] Last Admin: 12/24/18 09:00 Dose: Not Given Aspirin (Ecotrin) 81 mg PO DAILY [facility] Last Admin: 12/24/18 08:14 Dose: 81 mg Atorvastatin Calcium (Lipitor) 80 mg PO HS [facility] Last Admin: 12/24/18 21:09 Dose: 80 mg Docusate Sodium (Colace) 100 mg PO BID [facility] Last Admin: 12/24/18 17:27 Dose: Not Given Enoxaparin Sodium (Lovenox) 40 mg SC DAILY [facility]; Protocol Last Admin: 12/24/18 08:13 Dose: 40 mg Ferrous Sulfate (Feosol) 325 mg PO BID [facility] Last Admin: 12/24/18 17:26 Dose: 325 mg Lisinopril (Zestril) 20 mg PO DAILY [facility] Last Admin: 12/24/18 09:00 Dose: Not Given Nicotine (Nicoderm Cq) 1 patch TD DAILY [facility] Last Admin: 12/24/18 08:12 Dose: 1 patch Temazepam (Restoril) 30 mg PO HS PRN PRN Reason: Insomnia Last Admin: 12/24/18 21:09 Dose: 30 mg Results - Vital Signs Recent Vital Signs: Last Vital Signs Temp 96.9 F L 12/24/18 20:40 Pulse 88 12/24/18 20:40 Resp 20 12/24/18 20:40 BP 139/88 12/24/18 20:40 Pulse Ox 97 12/24/18 20:40 - Labs Result Diagrams: 12/24/18 06:20 12/24/18 06:20
[2018-12-25] MEDS: Enoxaparin 40 mg Syringe SC SCH (08:54)
--- NOTE | 2018-12-25 14:41 | CP.PCM.PN ---
Subjective - Date & Time of Evaluation Date of Evaluation: 12/25/18 Time of Evaluation: 12:30 - Subjective Subjective: patient lying in bed , no complaints of pain, wanted to stay here longer refusing subacute rehab Objective - Vital Signs/Intake and Output Vital Signs (last 24 hours): Temp Pulse Resp BP Pulse Ox 98.5 F 78 20 108/64 97 12/25/18 08:44 12/25/18 08:56 12/25/18 08:44 12/25/18 08:56 12/25/18 08:44 - Medications Medications: Current Medications Al Hydrox/Mg Hydrox/Simethicone (Maalox Plus 30 Ml) 30 ml PO Q6 PRN PRN Reason: Indigestion / Heartburn Last Admin: 12/24/18 18:30 Dose: 30 ml Amlodipine Besylate (Norvasc) 10 mg PO DAILY [facility] Last Admin: 12/25/18 08:55 Dose: Not Given Aspirin (Ecotrin) 81 mg PO DAILY [facility] Last Admin: 12/25/18 08:54 Dose: 81 mg Atorvastatin Calcium (Lipitor) 80 mg PO HS [facility] Last Admin: 12/24/18 21:09 Dose: 80 mg Docusate Sodium (Colace) 100 mg PO BID [facility] Last Admin: 12/25/18 08:54 Dose: 100 mg Enoxaparin Sodium (Lovenox) 40 mg SC DAILY [facility]; Protocol Last Admin: 12/25/18 08:54 Dose: 40 mg Ferrous Sulfate (Feosol) 325 mg PO BID [facility] Last Admin: 12/25/18 08:55 Dose: 325 mg Lisinopril (Zestril) 20 mg PO DAILY [facility] Last Admin: 12/25/18 08:56 Dose: Not Given Nicotine (Nicoderm Cq) 1 patch TD DAILY [facility] Last Admin: 12/25/18 08:53 Dose: 1 patch Temazepam (Restoril) 30 mg PO HS PRN PRN Reason: Insomnia Last Admin: 12/24/18 21:09 Dose: 30 mg - Labs Labs: 12/24/18 06:20 12/24/18 06:20 PT 11.9 Seconds (9.8-13.1) 12/18/18 05:25 INR 1.0 12/18/18 05:25 APTT 28.9 Seconds (25.6-37.1) 12/18/18 05:25 - Constitutional Appears: Well - Head Exam Head Exam: ATRAUMATIC, NORMAL INSPECTION, NORMOCEPHALIC - Eye Exam Eye Exam: EOMI, Normal appearance Pupil Exam: NORMAL ACCOMODATION, PERRL - ENT Exam ENT Exam: Mucous Membranes Moist, Normal Exam - Neck Exam Neck Exam: Full ROM, Normal Inspection - Respiratory Exam Respiratory Exam: Clear to Ausculation Bilateral, NORMAL BREATHING PATTERN - Cardiovascular Exam Cardiovascular Exam: REGULAR RHYTHM - GI/Abdominal Exam GI & Abdominal Exam: Normal Bowel Sounds - Rectal Exam Rectal Exam: NORMAL INSPECTION - Exam External exam: NORMAL EXTERNAL EXAM - Extremities Exam Extremities Exam: Full ROM, Normal Capillary Refill - Back Exam Back Exam: NORMAL INSPECTION - Neurological Exam Neurological Exam: Alert, Awake Neuro motor strength exam: Left Upper Extremity: 3, Left Lower Extremity: 3 - Psychiatric Exam Psychiatric exam: Normal Affect - Skin Skin Exam: Normal Color Assessment and Plan (1) CVA (cerebral vascular accident) Assessment & Plan: plan to continue with physical, occupational, rec therapy, stay in acute rehab to maximize potential. Psycology eval done. Status: Acute
--- NOTE | 2018-12-25 15:49 | CP.PCM.PN ---
Subjective - Date & Time of Evaluation Date of Evaluation: 12/25/18 Time of Evaluation: 14:10 - Subjective Subjective: Patient seen and examined. Denied any complaint Objective - Vital Signs/Intake and Output Vital Signs (last 24 hours): Temp Pulse Resp BP Pulse Ox 98.5 F 78 20 108/64 97 12/25/18 08:44 12/25/18 08:56 12/25/18 08:44 12/25/18 08:56 12/25/18 08:44 - Medications Medications: Current Medications Al Hydrox/Mg Hydrox/Simethicone (Maalox Plus 30 Ml) 30 ml PO Q6 PRN PRN Reason: Indigestion / Heartburn Last Admin: 12/24/18 18:30 Dose: 30 ml Amlodipine Besylate (Norvasc) 10 mg PO DAILY [facility] Last Admin: 12/25/18 08:55 Dose: Not Given Aspirin (Ecotrin) 81 mg PO DAILY [facility] Last Admin: 12/25/18 08:54 Dose: 81 mg Atorvastatin Calcium (Lipitor) 80 mg PO HS [facility] Last Admin: 12/24/18 21:09 Dose: 80 mg Docusate Sodium (Colace) 100 mg PO BID [facility] Last Admin: 12/25/18 08:54 Dose: 100 mg Enoxaparin Sodium (Lovenox) 40 mg SC DAILY [facility]; Protocol Last Admin: 12/25/18 08:54 Dose: 40 mg Ferrous Sulfate (Feosol) 325 mg PO BID [facility] Last Admin: 12/25/18 08:55 Dose: 325 mg Lisinopril (Zestril) 20 mg PO DAILY [facility] Last Admin: 12/25/18 08:56 Dose: Not Given Nicotine (Nicoderm Cq) 1 patch TD DAILY [facility] Last Admin: 12/25/18 08:53 Dose: 1 patch Temazepam (Restoril) 30 mg PO HS PRN PRN Reason: Insomnia Last Admin: 12/24/18 21:09 Dose: 30 mg - Labs Labs: 12/24/18 06:20 12/24/18 06:20 PT 11.9 Seconds (9.8-13.1) 12/18/18 05:25 INR 1.0 12/18/18 05:25 APTT 28.9 Seconds (25.6-37.1) 12/18/18 05:25 - Constitutional Appears: No Acute Distress - Head Exam Head Exam: ATRAUMATIC - Eye Exam Eye Exam: absent: Scleral icterus - ENT Exam ENT Exam: Mucous Membranes Moist - Neck Exam Neck Exam: absent: Meningismus - Respiratory Exam Respiratory Exam: absent: Rales, Rhonchi, Wheezes, Respiratory Distress - Cardiovascular Exam Cardiovascular Exam: REGULAR RHYTHM, +S1, +S2 - GI/Abdominal Exam GI & Abdominal Exam: Soft. absent: Tenderness - Rectal Exam Rectal Exam: Deferred - Neurological Exam Neurological Exam: Alert, Oriented x3 - Psychiatric Exam Psychiatric exam: Normal Affect - Skin Skin Exam: Dry, Intact Assessment and Plan - Assessment and Plan (Free Text) Assessment: 53 yo male with no significant PMH was admitted at [facility] [place] on 12/13/2018 because of acute CVA with left sided weakness. He was transferred to Acute Rehab on 12/17/2018 for continuation of PT/OT. 1. Acute CVA continue ASA and Lipitor continue PT/OT Dr Mora on physiatry consult 2. HTN BP stable continue Lisinopril and Amlodipine 3. DVT prophylaxis continue Lovenox 40mg SC daily
[2018-12-26] MEDS: Alum-Mag Hydrox-Simethicone Susp (30 mL) PO PRN ×2 (00:11→22:02)
[2018-12-26] MEDS: Enoxaparin 40 mg Syringe SC SCH (08:39)
[2018-12-27] MEDS: Alum-Mag Hydrox-Simethicone Susp (30 mL) PO PRN (04:30)
[2018-12-27 05:40] LABS: BLOOD UREA NITROGEN 16 mg/dl (9-20); CALCIUM 9.6 mg/dL (8.4-10.2); GFR NON-AFRICAN AMERICAN > 60
[2018-12-27 05:42] LABS: HEMOGLOBIN 12.3 g/dL (12.0-18.0); MEAN CELL VOLUME 85.8 fl (80.0-94.0); MEAN CORPUSCULAR HEMOGLOBIN 28.6 pg (27.0-31.0); MEAN CORPUSCULAR HGB CONC 33.4 g/dL (33.0-37.0); RBC 4.3 Mil/uL (4.40-5.90); RED CELL DISTRIBUTION WIDTH 15.9 % (11.5-14.5); WHITE BLOOD COUNT 8.1 K/uL (4.8-10.8)
[2018-12-27] MEDS: Pantoprazole 40 mg EC Tab PO SCH (05:50)
[2018-12-27] MEDS: Enoxaparin 40 mg Syringe SC SCH (08:33)
[2018-12-28] MEDS: Pantoprazole 40 mg EC Tab PO SCH (06:52)
[2018-12-28] MEDS: Enoxaparin 40 mg Syringe SC SCH (08:42)
--- NOTE | 2018-12-28 16:04 | CP.PCM.PN ---
Subjective - Date & Time of Evaluation Date of Evaluation: 12/28/18 Time of Evaluation: 14:45 - Subjective Subjective: Patient seen and examined. Claimed he is improving with PT but still complained of insomnia in spite of 5mg of Ambien. Objective - Vital Signs/Intake and Output Vital Signs (last 24 hours): Temp Pulse Resp BP Pulse Ox 97.7 F 82 22 115/73 100 12/28/18 09:39 12/28/18 09:39 12/28/18 09:39 12/28/18 09:39 12/28/18 09:39 - Medications Medications: Current Medications Al Hydrox/Mg Hydrox/Simethicone (Maalox Plus 30 Ml) 30 ml PO Q6 PRN PRN Reason: Indigestion / Heartburn Last Admin: 12/27/18 04:30 Dose: 30 ml Amlodipine Besylate (Norvasc) 10 mg PO DAILY [facility] Last Admin: 12/28/18 08:43 Dose: Not Given Aspirin (Ecotrin) 81 mg PO DAILY [facility] Last Admin: 12/28/18 08:46 Dose: 81 mg Atorvastatin Calcium (Lipitor) 80 mg PO HS [facility] Last Admin: 12/27/18 21:12 Dose: 80 mg Docusate Sodium (Colace) 100 mg PO BID [facility] Last Admin: 12/28/18 08:42 Dose: 100 mg Ferrous Sulfate (Feosol) 325 mg PO BID [facility] Last Admin: 12/28/18 08:45 Dose: 325 mg Lisinopril (Zestril) 20 mg PO DAILY [facility] Last Admin: 12/28/18 08:46 Dose: Not Given Nicotine (Nicoderm Cq) 1 patch TD DAILY [facility] Last Admin: 12/28/18 08:43 Dose: 1 patch Pantoprazole Sodium (Protonix Ec Tab) 40 mg PO 0630 [facility] Last Admin: 12/28/18 06:52 Dose: 40 mg Zolpidem Tartrate (Ambien) 10 mg PO HS PRN PRN Reason: Insomnia - Labs Labs: 12/27/18 05:00 12/27/18 05:29 PT 11.9 Seconds (9.8-13.1) 12/18/18 05:25 INR 1.0 12/18/18 05:25 APTT 28.9 Seconds (25.6-37.1) 12/18/18 05:25 - Constitutional Appears: No Acute Distress - Head Exam Head Exam: ATRAUMATIC - Eye Exam Eye Exam: absent: Scleral icterus - ENT Exam ENT Exam: Mucous Membranes Moist - Neck Exam Neck Exam: absent: Meningismus - Respiratory Exam Respiratory Exam: absent: Rales, Rhonchi, Wheezes, Respiratory Distress - Cardiovascular Exam Cardiovascular Exam: REGULAR RHYTHM, +S1, +S2 - GI/Abdominal Exam GI & Abdominal Exam: Soft. absent: Tenderness - Rectal Exam Rectal Exam: Deferred - Neurological Exam Neurological Exam: Alert, Oriented x3 - Psychiatric Exam Psychiatric exam: Normal Affect - Skin Skin Exam: Dry, Intact Assessment and Plan - Assessment and Plan (Free Text) Assessment: 53 yo male with no significant PMH was admitted at [facility] [place] on 12/13/2018 because of acute CVA with left sided weakness. He was transferred to Acute Rehab on 12/17/2018 for continuation of PT/OT. 1. Acute CVA continue ASA and Lipitor continue PT/OT Dr Mora on physiatry consult 2. HTN BP stable continue Lisinopril and Amlodipine 3. Insomina already on Ambien 5mg PO HS will reduce Nicoderm patch to 14mg 4. DVT prophylaxis continue Lovenox 40mg SC daily
[2018-12-29] MEDS: Pantoprazole 40 mg EC Tab PO SCH (06:56)
[2018-12-29] MEDS: Enoxaparin 40 mg Syringe SC SCH (09:30)
--- NOTE | 2018-12-29 19:32 | CP.PCM.PN ---
Subjective - Date & Time of Evaluation Date of Evaluation: 12/27/18 Time of Evaluation: 11:00 - Subjective Subjective: no acute complaints at present, Objective - Vital Signs/Intake and Output Vital Signs (last 24 hours): Temp Pulse Resp BP Pulse Ox 97.2 F L 70 19 131/82 100 12/29/18 07:53 12/29/18 09:30 12/29/18 07:53 12/29/18 09:30 12/29/18 07:53 - Medications Medications: Current Medications Al Hydrox/Mg Hydrox/Simethicone (Maalox Plus 30 Ml) 30 ml PO Q6 PRN PRN Reason: Indigestion / Heartburn Last Admin: 12/27/18 04:30 Dose: 30 ml Amlodipine Besylate (Norvasc) 10 mg PO DAILY [facility] Last Admin: 12/29/18 09:30 Dose: 10 mg Aspirin (Ecotrin) 81 mg PO DAILY [facility] Last Admin: 12/29/18 10:04 Dose: 81 mg Atorvastatin Calcium (Lipitor) 80 mg PO HS [facility] Last Admin: 12/28/18 21:02 Dose: 80 mg Docusate Sodium (Colace) 100 mg PO BID [facility] Last Admin: 12/29/18 17:58 Dose: Not Given Enoxaparin Sodium (Lovenox) 40 mg SC DAILY [facility]; Protocol Last Admin: 12/29/18 09:30 Dose: 40 mg Ferrous Sulfate (Feosol) 325 mg PO BID [facility] Last Admin: 12/29/18 18:00 Dose: 325 mg Lisinopril (Zestril) 20 mg PO DAILY [facility] Last Admin: 12/29/18 09:30 Dose: 20 mg Nicotine (Nicoderm Cq) 1 patch TD DAILY [facility] Last Admin: 12/29/18 10:02 Dose: 1 patch Pantoprazole Sodium (Protonix Ec Tab) 40 mg PO 0630 [facility] Last Admin: 12/29/18 06:56 Dose: 40 mg Zolpidem Tartrate (Ambien) 5 mg PO HS PRN PRN Reason: Insomnia Last Admin: 12/28/18 21:06 Dose: 5 mg - Labs Labs: 12/27/18 05:00 12/27/18 05:29 PT 11.9 Seconds (9.8-13.1) 12/18/18 05:25 INR 1.0 12/18/18 05:25 APTT 28.9 Seconds (25.6-37.1) 12/18/18 05:25 - Constitutional Appears: Well - Head Exam Head Exam: ATRAUMATIC, NORMAL INSPECTION, NORMOCEPHALIC - Eye Exam Pupil Exam: NORMAL ACCOMODATION, PERRL - ENT Exam ENT Exam: Mucous Membranes Moist - Neck Exam Neck Exam: Full ROM, Normal Inspection - Respiratory Exam Respiratory Exam: Clear to Ausculation Bilateral, NORMAL BREATHING PATTERN - Cardiovascular Exam Cardiovascular Exam: REGULAR RHYTHM - GI/Abdominal Exam GI & Abdominal Exam: Soft, Normal Bowel Sounds - Rectal Exam Rectal Exam: NORMAL INSPECTION - Exam External exam: NORMAL EXTERNAL EXAM - Extremities Exam Extremities Exam: Full ROM, Normal Inspection - Back Exam Back Exam: NORMAL INSPECTION - Neurological Exam Neurological Exam: Alert, Awake Neuro motor strength exam: Left Upper Extremity: 2/1, Right Lower Extremity: 3 - Psychiatric Exam Psychiatric exam: Normal Affect Assessment and Plan (1) CVA (cerebral vascular accident) Assessment & Plan: plan for physical, occupational rec therapy at present, Status: Acute
--- NOTE | 2018-12-29 19:36 | CP.PCM.PN ---
Subjective - Date & Time of Evaluation Date of Evaluation: 12/29/18 Time of Evaluation: 14:00 - Subjective Subjective: patient sitting in wheelchair, happy with gains in therapy Objective - Vital Signs/Intake and Output Vital Signs (last 24 hours): Temp Pulse Resp BP Pulse Ox 97.2 F L 70 19 131/82 100 12/29/18 07:53 12/29/18 09:30 12/29/18 07:53 12/29/18 09:30 12/29/18 07:53 - Medications Medications: Current Medications Al Hydrox/Mg Hydrox/Simethicone (Maalox Plus 30 Ml) 30 ml PO Q6 PRN PRN Reason: Indigestion / Heartburn Last Admin: 12/27/18 04:30 Dose: 30 ml Amlodipine Besylate (Norvasc) 10 mg PO DAILY [facility] Last Admin: 12/29/18 09:30 Dose: 10 mg Aspirin (Ecotrin) 81 mg PO DAILY [facility] Last Admin: 12/29/18 10:04 Dose: 81 mg Atorvastatin Calcium (Lipitor) 80 mg PO HS [facility] Last Admin: 12/28/18 21:02 Dose: 80 mg Docusate Sodium (Colace) 100 mg PO BID [facility] Last Admin: 12/29/18 17:58 Dose: Not Given Enoxaparin Sodium (Lovenox) 40 mg SC DAILY [facility]; Protocol Last Admin: 12/29/18 09:30 Dose: 40 mg Ferrous Sulfate (Feosol) 325 mg PO BID [facility] Last Admin: 12/29/18 18:00 Dose: 325 mg Lisinopril (Zestril) 20 mg PO DAILY [facility] Last Admin: 12/29/18 09:30 Dose: 20 mg Nicotine (Nicoderm Cq) 1 patch TD DAILY [facility] Last Admin: 12/29/18 10:02 Dose: 1 patch Pantoprazole Sodium (Protonix Ec Tab) 40 mg PO 0630 [facility] Last Admin: 12/29/18 06:56 Dose: 40 mg Zolpidem Tartrate (Ambien) 5 mg PO HS PRN PRN Reason: Insomnia Last Admin: 12/28/18 21:06 Dose: 5 mg - Labs Labs: 12/27/18 05:00 12/27/18 05:29 PT 11.9 Seconds (9.8-13.1) 12/18/18 05:25 INR 1.0 12/18/18 05:25 APTT 28.9 Seconds (25.6-37.1) 12/18/18 05:25 - Constitutional Appears: Well - Head Exam Head Exam: ATRAUMATIC, NORMAL INSPECTION, NORMOCEPHALIC - Eye Exam Eye Exam: EOMI, Normal appearance Pupil Exam: NORMAL ACCOMODATION, PERRL - ENT Exam ENT Exam: Mucous Membranes Moist, Normal Exam - Neck Exam Neck Exam: Full ROM, Normal Inspection - Respiratory Exam Respiratory Exam: Clear to Ausculation Bilateral, NORMAL BREATHING PATTERN - Cardiovascular Exam Cardiovascular Exam: REGULAR RHYTHM - GI/Abdominal Exam GI & Abdominal Exam: Soft, Normal Bowel Sounds - Rectal Exam Rectal Exam: NORMAL INSPECTION - Exam External exam: NORMAL EXTERNAL EXAM - Extremities Exam Extremities Exam: Full ROM, Normal Capillary Refill - Back Exam Back Exam: NORMAL INSPECTION - Neurological Exam Neurological Exam: Alert, Awake Neuro motor strength exam: Left Upper Extremity: 3, Left Lower Extremity: 3 - Psychiatric Exam Psychiatric exam: Normal Affect - Skin Skin Exam: Dry, Normal Color Assessment and Plan (1) CVA (cerebral vascular accident) Assessment & Plan: plan for physical, occupational therapy, to do car transfers, went outside today, does not want to go to subacute, just wants to stay in acute rehab and t hen go home. Status: Acute
[2018-12-30] MEDS: Pantoprazole 40 mg EC Tab PO SCH (05:56)
[2018-12-30 06:20] LABS: HEMOGLOBIN 12.2 g/dL (12.0-18.0); MEAN CELL VOLUME 86.5 fl (80.0-94.0); MEAN CORPUSCULAR HEMOGLOBIN 28.5 pg (27.0-31.0); MEAN CORPUSCULAR HGB CONC 32.9 g/dL (33.0-37.0); RBC 4.28 Mil/uL (4.40-5.90); RED CELL DISTRIBUTION WIDTH 15.8 % (11.5-14.5); WHITE BLOOD COUNT 8.1 K/uL (4.8-10.8)
[2018-12-30 06:30] LABS: BLOOD UREA NITROGEN 15 mg/dl (9-20); CALCIUM 9.6 mg/dL (8.4-10.2); GFR NON-AFRICAN AMERICAN > 60
[2018-12-30] MEDS: Enoxaparin 40 mg Syringe SC SCH (08:41)
--- NOTE | 2018-12-30 11:25 | CP.PCM.PN ---
Subjective - Date & Time of Evaluation Date of Evaluation: 12/30/18 Time of Evaluation: 11:25 - Subjective Subjective: doing well tolerating PT hd stable nad Objective - Vital Signs/Intake and Output Vital Signs (last 24 hours): Temp Pulse Resp BP Pulse Ox 98.2 F 79 26 H 138/91 H 99 12/30/18 08:39 12/30/18 08:42 12/30/18 08:39 12/30/18 08:42 12/30/18 08:39 Vitals Reviewed GEN: WDWN, alert, cooperative HEENT: NCAT, PERRL, EOMI HEART: RRR, +S1S2, NO MRG LUNG: CTAB, NO WRR ABD: soft, NT, ND, No HSM, No masses EXT: normal pedal pulses NEURO: awake, alert SKIN: warm, dry PSYCH: normal mood, normal affect - Medications Medications: Current Medications Al Hydrox/Mg Hydrox/Simethicone (Maalox Plus 30 Ml) 30 ml PO Q6 PRN PRN Reason: Indigestion / Heartburn Last Admin: 12/27/18 04:30 Dose: 30 ml Amlodipine Besylate (Norvasc) 10 mg PO DAILY [facility] Last Admin: 12/30/18 08:42 Dose: 10 mg Aspirin (Ecotrin) 81 mg PO DAILY [facility] Last Admin: 12/30/18 08:41 Dose: 81 mg Atorvastatin Calcium (Lipitor) 80 mg PO HS [facility] Last Admin: 12/29/18 21:19 Dose: 80 mg Docusate Sodium (Colace) 100 mg PO BID [facility] Last Admin: 12/30/18 08:41 Dose: Not Given Enoxaparin Sodium (Lovenox) 40 mg SC DAILY [facility]; Protocol Last Admin: 12/30/18 08:41 Dose: 40 mg Ferrous Sulfate (Feosol) 325 mg PO BID [facility] Last Admin: 12/30/18 08:41 Dose: 325 mg Lisinopril (Zestril) 20 mg PO DAILY [facility] Last Admin: 12/30/18 08:42 Dose: 20 mg Nicotine (Nicoderm Cq) 1 patch TD DAILY [facility] Last Admin: 12/30/18 08:41 Dose: 1 patch Pantoprazole Sodium (Protonix Ec Tab) 40 mg PO 0630 [facility] Last Admin: 12/30/18 05:56 Dose: 40 mg Zolpidem Tartrate (Ambien) 5 mg PO HS PRN PRN Reason: Insomnia Last Admin: 12/29/18 22:12 Dose: 5 mg - Labs Labs: 12/30/18 05:25 12/30/18 05:25 PT 11.9 Seconds (9.8-13.1) 12/18/18 05:25 INR 1.0 12/18/18 05:25 APTT 28.9 Seconds (25.6-37.1) 12/18/18 05:25 Assessment and Plan - Assessment and Plan (Free Text) Plan: 53 yo male with no significant PMH was admitted at [facility] [place] on 12/13/2018 because of acute CVA with left sided weakness. He was transferred to Acute Rehab on 12/17/2018 for continuation of PT/OT. 1. Acute CVA continue ASA and Lipitor continue PT/OT Dr Mora on physiatry consult 2. HTN BP stable continue Lisinopril and Amlodipine 3. Insomina already on Ambien 5mg PO HS will reduce Nicoderm patch to 14mg 4. DVT prophylaxis continue Lovenox 40mg SC daily
--- NOTE | 2018-12-30 12:03 | PCM.PSYTMC ---
Acute Rehab Team Conference - - Vital Signs: Vital Signs (Last 8 Hours): Vital Signs 12/30/18 12/30/18 08:39 08:42 Temperature 98.2 F Pulse Rate 79 79 Respiratory 26 H Rate Blood Pressure 138/91 H 138/91 H O2 Sat by Pulse 99 Oximetry Pain: 0 - Precautions: Precautions: Fall Prevention - Consults: Comment: jose juan - Toileting: Toileting: Moderate Assistance - Bladder Management: Bladder Pattern: Normal Voiding Method: Urinal Bladder Management: Independent - Transfers: Transfers: Moderate Assistance - ADL's: ADL's: Moderate Assistance - Patient/Family Teaching: Other Intervention:: safety - Provider: Registered Nurse:: Carolina Gray Physical Therapy - Bed Mobility Bed Mobility: Supervision, Verbal Cues - Transfers Wheelchair to Mat: Supervision, Verbal Cues Sit to Stand: Supervision, Verbal Cues - Ambulation Level of Assistance: Supervision, Verbal Cues Distance (ft.): 200 Assistive Devices: Single point cane - Stair Negotiation Stairs: Level of Assistance: Supervision, Verbal Cues, Contact Guard Number of Stairs: 12 Handrails: Left - Standing Balance Static Stand: Supervision - Pain Pain (assessed during therapy session): 0 - Insight/Carryover Insight/Carryover: Good - Patient/Family Education Comment: Caregiver training with daughter for stair negotiation and gait. Pt education for CVA recovery, safety, POC - Assessment/Plan Assessment: Pt participated in PT tx sesion focusing on community mobility and caregiver training. Pts daughterShante, present and completed caregiver training for gait and stair negotiation. Daughter demonstrated proper guarding techniques. Pt ambulates on even surface with close S using SPC; required CGA on sidewalk/uneven surfaces. Pt will continue to benefit from skilled PT interventions to address deficits, reduce fall risk, and maximize functional independence. - Goals Timeframe: 1 week Goals: Sit < > supine mod I. Sit < > stand transfers mod I with SPC. Pt will ambulate 1000 ft mod I with SPC. Pt will ascend/descend flight of stairs with S using handrail - Provider Physical Therapist:: Madeline Rincon License Number:: [id number] Occupational Therapy - Arousal/Attention/Orientation Level of Consciousness: Awake, Alert Patient Orientation: Person, Place, Time, Appropriate to Age, Appropriate to Situation - ADL/IADL Self Feeding: Set-up Help Grooming: Set-up Help Bathing-Upper Ext: Verbal Cues, Set-up Help, Minimal Assistance Bathing-Lower Ext: Verbal Cues, Set-up Help, Minimal Assistance Dressing-Upper Ext: Supervision, Verbal Cues, Set-up Help Dressing-Lower Ext: Supervision, Verbal Cues, Set-up Help, Contact Guard Comment: homemaking: TBA - Sitting Balance Static Sitting: Independent without upper extremity support Dynamic Sitting: Reaches across midline, Reaches out of base of support, Reaches within base of support, Requires supervision Comment: seated unsupported - Transfers Wheelchair to Bed Transfers: Supervision, Verbal Cues, Set-up Help, Contact Guard Toilet Transfers: Supervision, Verbal Cues, Set-up Help, Contact Guard Comment: shower transfers; Cg/Min assist and verbal uces for pacing - Wheelchair Management Level of Assistance: Modified Independent Distance (ft.): 150 - Upper Extremity Status Right Upper Extremity Comment: A/PROM is WNLs: 5/5 Left Upper Extremity Comment: PROM ins WNLs, no subluxation. +flexion synery pattern with L shoulder abduction 1/2 range, elbow flexion/extension full, forearm posrination/supination 1/2 -3/4 active range, no wrist(trace), mass gr asp pattern - Pain Pain (assessed during therapy session): 0 - Insight/Carryover Insight/Carryover: Fair - Patient/Family Education Comment: -rehab/OT goals, plan of care. -encourage adl partcipation & OOB activities for recovery process. -functional transfers/mobility/self care using compensatory stategies. -w/c management/propulsion. -LUE management/HEP & positioning on laptray. -safety--use of call for assistance. -energy conservation/work simplification strategies. -stroke handout--to pt/pt's daughter. -pt/pt;s daughter educated on DME needs/applications-for example shower chair with back, commode, hand held shower. -further acregiver education recommended for safe transition home with services - Assessment/Plan Assessment: Patient is a 53 year old male with dx: acute CVA. *Precautions: falls(w/c & bed alarms), cardiac, safety, L laptray. Pt with the following impairments: -impaired motor control/strength & coordination in LUE/LLE. - impaired balance/postural control. -impaired safety awareness. -impaired act ivity tolerance/endurance. -impaired overall strength--which impact on function/safety during self care, transfers/mobility and Iadls. Pt will continue to benefit from skilled Occupational Therapy to address functional impairments, maxmize function in self care, transfers/mobility using adaptive/compensatory strategies, increase RUE strength/motor control/coordination. Pt demonstrates increase strength in L shoulder flexion, elbow flexion/extension(against gravity), shoulder elevation(against gravity), forearm supination/pronation, L visual inspector, however no wrist noted at this time. Pt encourage to monitor/control breathing with activities to increase endurance/function. Pt may need the following DMEs upon discharge home: * 3 in one commode. * shower chair with back or transfer tub bench pending progress. Pt currently at CG/ Min assist level level for self care, transfers and mobility. Pt will continue to benefit from intensive comprehensive acute rehab--PT/OT--to maximize LUE/LLE strength/coordination, standing balance/tolerance, safety awareness, function in daily living tasks, mobility for safe transition home @ Mod I level with asistive device(s). Pt has limited insight into limitations thus needs reminders of needing assistance at home. *Goal: Intemittent Supervision for self care, transfers/mobility and Iadls with assistive device - Goals Timeframe: 8 days Comment: -FEEDING:Mod I. -GROOMING: I/setup. -UPPER BODY DRESSING: I/setup--reanna techniques prn. -LOWER BODY DRESSING: I/setup--reanna techniques prn. -TOILETING: Distant Supervision/Supervision. -BATHING: Supervison/setup and verbal cues seated. -TRANSFERS:<->bed, commode, w/c and other surfaces with DS/Supervision. -GATHER/TRANSPORTS ITEMS: Supervision/DS and verbal cues with assistive device prn. -CAREGIVER ED: Pt's caregiver to be I assistikng pt with daily living tasks, transfers/mobility prn. -KITCHEN TASKS: Supervision using a daptive strategies - Provider Occupational Therapist:: Ariela Madden License Number: [id number] Speech Therapy - Consult Information Patient on Program: Yes Medical Diagnosis: CVA Treatment Diagnosis: functional oropharyngeal swallow; minimal L facial droop - Assessment Comment: WFL - Plan Assessment: Tatiana Flynn presents with functional oral swallow and pharyngeal swallow judged to be WFL; he is tolerating current diet of regular solids and thin liquids without overt difficulty. Pt with minimal L facial droop, though is able to complete oral motor exercises independently. Therefore, pt will be discharged from dysphagia tx at this time; discharge instructions, safe swallow strategies, and home exercise program were discussed with the pt with reciprocal comprehension verbally expressed. Plan: Discharge Dysphagia Therapy Recommendations: Discharge dysphagia tx; continue regular diet with thin liquids - Provider Therapist: Sandi Sanchez License Number: [id number] Recreational Therapy - Participation Participation: Participates in Individual and/or Group Sessions - Attendance Attendance: 3-5 times per week - Activities Leisure Activities: Cards and Games - Socialization Level of Socialization: Initiates/interacts freely with care givers and peer - Diversional Time Diversional Time: participates in dominoes, puzzles, etc. - Assessment Assessment/Plan: Pt is agreeable to participate in 1:1 recreation therapy sessions throughout stay on unit. Pt enjoys participating in dominoes task and was oriented to other leisure tasks related to improving problem solving and direction following. Pt is mod I with leisure tasks following setup. Pt provided with sudoku puzzle to complete during his free time. Pt will benefit from leisure education and stroke education prior to discharge. Pt continues to receive daily room visits for social support and motivational support. Pt's mood is stable-positive. Problems Currently Limiting Participation: L side UE and LE weakness, decrease leisure awareness level Goals and Time Frame: Pt will be encouraged to participate in 1:1 and group recreation therapy sessions 3-5x week to improve activity tolerance level, leisure awareness level, direction following, and overall mood state. - Provider Therapist: Mavis Rehman Nutrition - Current Diet Current Diet/Supplement/Feedings: Heart healthy thin liquids - Appetite Percent Meal Consumed: 75-100% - Assessment/Goals/Time Frame Assessments/Goals/Time Frame: Pt at moderate nutritional risk. goal:1. Pt to consume 75-100% of meals(partially met, continue). Follow-up due on 01/01/2019 - Provider Provider: Qian Alonzo Case Management - Psychosocial Assessment Support Systems: Susan Flynn (spouse) - [phone] Psychological Interventions/Needs: Patient is AAOx3 and able to verbalize needs. Discharge Concerns: Patient has six steps to enter the home and daughter will only be available in the afternoons to help as she is in college and attending classes early in the days during the week. Patient/Family Meeting: CM met with patient and rehab team. Intervention/Goal/Outcome: 1. Goal: Intermittent supervision 2. Plan: home with services 3. caregiver training completed with Shante marshall 4. DME needs 5. continued emotional support - Discharge Plan Discharge Plan: Home with services Home Services: [facility] - Provider Provider: Zuleima Horn License Number: [id number] Rehabilitation Plan - Treatment Plan Treatment Plan: Physical Therapy, Occupational Therapy, Dietary, Patient/Family Education - Recommendation Recommendation: Physical Therapy, Occupational Therapy, Dietary, Patient/Family Education - Discharge Plan Discharge to: Home (Dc )
--- NOTE | 2018-12-30 18:04 | CP.PCM.PN ---
Subjective - Date & Time of Evaluation Date of Evaluation: 12/30/18 Time of Evaluation: 12:15 - Subjective Subjective: no acute complaints getting more return in arm and leg Objective - Vital Signs/Intake and Output Vital Signs (last 24 hours): Temp Pulse Resp BP Pulse Ox 98.2 F 79 26 H 138/91 H 99 12/30/18 08:39 12/30/18 08:42 12/30/18 08:39 12/30/18 08:42 12/30/18 08:39 - Medications Medications: Current Medications Al Hydrox/Mg Hydrox/Simethicone (Maalox Plus 30 Ml) 30 ml PO Q6 PRN PRN Reason: Indigestion / Heartburn Last Admin: 12/27/18 04:30 Dose: 30 ml Amlodipine Besylate (Norvasc) 10 mg PO DAILY [facility] Last Admin: 12/30/18 08:42 Dose: 10 mg Aspirin (Ecotrin) 81 mg PO DAILY [facility] Last Admin: 12/30/18 08:41 Dose: 81 mg Atorvastatin Calcium (Lipitor) 80 mg PO HS [facility] Last Admin: 12/29/18 21:19 Dose: 80 mg Docusate Sodium (Colace) 100 mg PO BID [facility] Last Admin: 12/30/18 16:17 Dose: Not Given Enoxaparin Sodium (Lovenox) 40 mg SC DAILY [facility]; Protocol Last Admin: 12/30/18 08:41 Dose: 40 mg Ferrous Sulfate (Feosol) 325 mg PO BID [facility] Last Admin: 12/30/18 16:17 Dose: 325 mg Lisinopril (Zestril) 20 mg PO DAILY [facility] Last Admin: 12/30/18 08:42 Dose: 20 mg Nicotine (Nicoderm Cq) 1 patch TD DAILY [facility] Last Admin: 12/30/18 08:41 Dose: 1 patch Pantoprazole Sodium (Protonix Ec Tab) 40 mg PO 0630 [facility] Last Admin: 12/30/18 05:56 Dose: 40 mg Zolpidem Tartrate (Ambien) 5 mg PO HS PRN PRN Reason: Insomnia Last Admin: 12/29/18 22:12 Dose: 5 mg - Labs Labs: 12/30/18 05:25 12/30/18 05:25 PT 11.9 Seconds (9.8-13.1) 12/18/18 05:25 INR 1.0 12/18/18 05:25 APTT 28.9 Seconds (25.6-37.1) 12/18/18 05:25 - Constitutional Appears: Well - Head Exam Head Exam: ATRAUMATIC, NORMAL INSPECTION, NORMOCEPHALIC - Eye Exam Eye Exam: EOMI, Normal appearance Pupil Exam: NORMAL ACCOMODATION, PERRL - ENT Exam ENT Exam: Mucous Membranes Moist - Neck Exam Neck Exam: Full ROM, Normal Inspection - Respiratory Exam Respiratory Exam: Clear to Ausculation Bilateral, NORMAL BREATHING PATTERN - Cardiovascular Exam Cardiovascular Exam: REGULAR RHYTHM - GI/Abdominal Exam GI & Abdominal Exam: Soft, Normal Bowel Sounds - Rectal Exam Rectal Exam: NORMAL INSPECTION - Exam External exam: NORMAL EXTERNAL EXAM - Extremities Exam Extremities Exam: Full ROM, Normal Capillary Refill, Normal Inspection - Back Exam Back Exam: NORMAL INSPECTION - Neurological Exam Neurological Exam: Alert, Awake Neuro motor strength exam: Left Upper Extremity: 3, Left Lower Extremity: 3 - Psychiatric Exam Psychiatric exam: Normal Mood - Skin Skin Exam: Normal Color Assessment and Plan (1) CVA (cerebral vascular accident) Assessment & Plan: status post team conference, Dc hoping for jan 03 to give additional day of therapy, otherwise b 9, physical, occupational therapy program. Status: Acute
[2018-12-31] MEDS: Pantoprazole 40 mg EC Tab PO SCH (07:00)
[2018-12-31] MEDS: Enoxaparin 40 mg Syringe SC SCH (09:05)
[2019-01-01] MEDS: Pantoprazole 40 mg EC Tab PO SCH (05:35)
--- NOTE | 2019-01-01 08:00 | CP.PCM.CON ---
History of Present Illness - History of Present Illness History of Present Illness: Pt seen for supportive therapy 7:30-:750. Pt discussed gains over the last week, and increased strength and mobility. Pt discussed his future, increased optimism, and looking forward to return home to family. Dysphoria reduced, anxiety reduced, cognitive stategies reviewed to reduce distress overall. Pt adjusted well. Past Patient History - Past Medical History & Family History Past Medical History?: Yes - Past Social History Smoking Status: Heavy Smoker > 10 Cigarettes Daily Chewing Tobacco Use: No Cigar Use: No Alcohol: Occasional Drugs: Denies - CARDIAC Hx Hypertension: Yes - PULMONARY Hx Respiratory Disorders: No - NEUROLOGICAL HX Cerebrovascular Accident: Yes - HEENT Hx HEENT Problems: No - RENAL Hx Chronic Kidney Disease: No - ENDOCRINE/METABOLIC Hx Endocrine Disorders: No - HEMATOLOGICAL/ONCOLOGICAL Hx Blood Disorders: No - INTEGUMENTARY Hx Dermatological Problems: No - MUSCULOSKELETAL/RHEUMATOLOGICAL Hx Musculoskeletal Disorders: No - GASTROINTESTINAL Hx Gastrointestinal Disorders: No - GENITOURINARY/GYNECOLOGICAL Hx Genitourinary Disorders: No - PSYCHIATRIC Hx Psychophysiologic Disorder: No - SURGICAL HISTORY Hx Surgeries: No - ANESTHESIA Hx Anesthesia: No Meds Allergies/Adverse Reactions: Allergies Allergy/AdvReac Type Severity Reaction Status Date / Time No Known Allergies Allergy Verified 12/17/18 21:40 - Medications Medications: Current Medications Al Hydrox/Mg Hydrox/Simethicone (Maalox Plus 30 Ml) 30 ml PO Q6 PRN PRN Reason: Indigestion / Heartburn Last Admin: 12/27/18 04:30 Dose: 30 ml Amlodipine Besylate (Norvasc) 10 mg PO DAILY [facility] Last Admin: 12/31/18 09:06 Dose: 10 mg Aspirin (Ecotrin) 81 mg PO DAILY [facility] Last Admin: 12/31/18 09:05 Dose: 81 mg Atorvastatin Calcium (Lipitor) 80 mg PO HS [facility] Last Admin: 12/31/18 21:32 Dose: 80 mg Docusate Sodium (Colace) 100 mg PO BID [facility] Last Admin: 12/31/18 17:49 Dose: 100 mg Enoxaparin Sodium (Lovenox) 40 mg SC DAILY [facility]; Protocol Last Admin: 12/31/18 09:05 Dose: 40 mg Ferrous Sulfate (Feosol) 325 mg PO BID [facility] Last Admin: 12/31/18 17:49 Dose: 325 mg Lisinopril (Zestril) 20 mg PO DAILY [facility] Last Admin: 12/31/18 09:06 Dose: 20 mg Nicotine (Nicoderm Cq) 1 patch TD DAILY [facility] Last Admin: 12/31/18 09:02 Dose: 1 patch Pantoprazole Sodium (Protonix Ec Tab) 40 mg PO 0630 [facility] Last Admin: 01/01/19 05:35 Dose: 40 mg Zolpidem Tartrate (Ambien) 5 mg PO HS PRN PRN Reason: Insomnia Last Admin: 12/31/18 21:32 Dose: 5 mg Results - Vital Signs Recent Vital Signs: Last Vital Signs Temp 97.7 F 01/01/19 07:33 Pulse 73 01/01/19 07:33 Resp 20 01/01/19 07:33 BP 111/68 01/01/19 07:33 Pulse Ox 99 01/01/19 07:33 - Labs Result Diagrams: 12/30/18 05:25 12/30/18 05:25
[2019-01-01] MEDS: Enoxaparin 40 mg Syringe SC SCH (09:46)
--- NOTE | 2019-01-01 12:07 | CP.PCM.PN ---
Subjective - Date & Time of Evaluation Date of Evaluation: 01/01/19 Time of Evaluation: 10:00 - Subjective Subjective: patient is wheeling the wheelchair, no acute complaints at present Objective - Vital Signs/Intake and Output Vital Signs (last 24 hours): Temp Pulse Resp BP Pulse Ox 97.7 F 73 20 111/68 99 01/01/19 07:33 01/01/19 09:47 01/01/19 07:33 01/01/19 09:47 01/01/19 07:33 - Medications Medications: Current Medications Al Hydrox/Mg Hydrox/Simethicone (Maalox Plus 30 Ml) 30 ml PO Q6 PRN PRN Reason: Indigestion / Heartburn Last Admin: 12/27/18 04:30 Dose: 30 ml Amlodipine Besylate (Norvasc) 10 mg PO DAILY [facility] Last Admin: 01/01/19 09:43 Dose: 10 mg Aspirin (Ecotrin) 81 mg PO DAILY [facility] Last Admin: 12/31/18 09:05 Dose: 81 mg Atorvastatin Calcium (Lipitor) 80 mg PO HS [facility] Last Admin: 12/31/18 21:32 Dose: 80 mg Docusate Sodium (Colace) 100 mg PO BID [facility] Last Admin: 01/01/19 09:42 Dose: 100 mg Enoxaparin Sodium (Lovenox) 40 mg SC DAILY [facility]; Protocol Last Admin: 01/01/19 09:46 Dose: 40 mg Ferrous Sulfate (Feosol) 325 mg PO BID [facility] Last Admin: 01/01/19 09:42 Dose: 325 mg Lisinopril (Zestril) 20 mg PO DAILY [facility] Last Admin: 01/01/19 09:47 Dose: 20 mg Nicotine (Nicoderm Cq) 1 patch TD DAILY [facility] Last Admin: 01/01/19 09:43 Dose: 1 patch Pantoprazole Sodium (Protonix Ec Tab) 40 mg PO 0630 [facility] Last Admin: 01/01/19 05:35 Dose: 40 mg Zolpidem Tartrate (Ambien) 5 mg PO HS PRN PRN Reason: Insomnia Last Admin: 12/31/18 21:32 Dose: 5 mg - Labs Labs: 12/30/18 05:25 12/30/18 05:25 PT 11.9 Seconds (9.8-13.1) 12/18/18 05:25 INR 1.0 12/18/18 05:25 APTT 28.9 Seconds (25.6-37.1) 12/18/18 05:25 - Constitutional Appears: Well - Head Exam Head Exam: ATRAUMATIC, NORMAL INSPECTION, NORMOCEPHALIC - Eye Exam Eye Exam: EOMI, Normal appearance, PERRL Pupil Exam: NORMAL ACCOMODATION - ENT Exam ENT Exam: Mucous Membranes Moist, Normal Exam - Neck Exam Neck Exam: Normal Inspection - Respiratory Exam Respiratory Exam: NORMAL BREATHING PATTERN - Cardiovascular Exam Cardiovascular Exam: REGULAR RHYTHM - GI/Abdominal Exam GI & Abdominal Exam: Soft, Normal Bowel Sounds - Rectal Exam Rectal Exam: NORMAL INSPECTION - Exam External exam: NORMAL EXTERNAL EXAM - Extremities Exam Extremities Exam: Full ROM, Normal Capillary Refill, Normal Inspection - Back Exam Back Exam: NORMAL INSPECTION - Neurological Exam Neurological Exam: Alert, Awake Neuro motor strength exam: Left Upper Extremity: 3, Left Lower Extremity: 3 - Psychiatric Exam Psychiatric exam: Normal Affect, Normal Mood Assessment and Plan (1) CVA (cerebral vascular accident) Assessment & Plan: physical, occupational, rec and speech therapy, Dc planning Status: Acute
[2019-01-02] MEDS: Pantoprazole 40 mg EC Tab PO SCH (07:02)
[2019-01-02 07:29] LABS: HEMOGLOBIN 12.3 g/dL (12.0-18.0); MEAN CELL VOLUME 86.6 fl (80.0-94.0); MEAN CORPUSCULAR HEMOGLOBIN 28.7 pg (27.0-31.0); MEAN CORPUSCULAR HGB CONC 33.2 g/dL (33.0-37.0); RBC 4.28 Mil/uL (4.40-5.90); WHITE BLOOD COUNT 7.1 K/uL (4.8-10.8)
[2019-01-02 07:40] LABS: BLOOD UREA NITROGEN 14 mg/dl (9-20); CALCIUM 9.7 mg/dL (8.4-10.2); GFR NON-AFRICAN AMERICAN > 60
[2019-01-02 08:23] VITALS: BP 146/89; PULSE 77; RESP 20; TEMP 98.6; O2SAT 96
[2019-01-02] MEDS: Enoxaparin 40 mg Syringe SC SCH (08:30)
--- NOTE | 2019-01-02 09:57 | CP.PCM.DIS ---
Provider - Provider Date of Admission: 12/17/18 21:41 Attending physician: Jacques Jackson Consults: 12/17/18 22:58 Physiatry Consult Routine Comment: Consulting Provider: Chris Mccloud Consulting Physician: Chris Mccloud Reason for Consult: Acute CVA 12/17/18 23:29 Case Management Referral Routine Comment: Physician Instructions: Reason For Exam: Reason for Referral: Discharge Planning 12/18/18 01:18 Pharmacist Consult As Ordered Comment: Physician Instructions: Reason For Exam: Pt on Lovenox 12/23/18 12:58 Psychology Consult Routine Comment: anxiety Consulting Provider: Tiff Burnett Consulting Physician: Tiff Burnett Reason for Consult: anxiety/depression Time Spent in preparation of Discharge (in minutes): 25 Diagnosis - Discharge Diagnosis (1) CVA (cerebral vascular accident) Status: Acute Comment: continue ASA and Lipitor and BP management (2) HTN (hypertension) Status: Acute Comment: BP stable. continue Lisinopril and Amlodipine Hospital Course - Lab Results Lab Results: Most Recent Lab Values WBC 7.1 K/uL (4.8-10.8) 01/02/19 05:30 RBC 4.28 Mil/uL (4.40-5.90) L 01/02/19 05:30 Hgb 12.3 g/dL (12.0-18.0) 01/02/19 05:30 Hct 37.0 % (35.0-51.0) 01/02/19 05:30 MCV 86.6 fl (80.0-94.0) 01/02/19 05:30 MCH 28.7 pg (27.0-31.0) 01/02/19 05:30 MCHC 33.2 g/dL (33.0-37.0) 01/02/19 05:30 RDW 16.0 % (11.5-14.5) H 01/02/19 05:30 Plt Count 369 K/uL (130-400) 01/02/19 05:30 MPV 7.0 fl (7.2-11.7) L 12/18/18 05:25 Neut % (Auto) 49.3 % (50.0-75.0) L 12/18/18 05:25 Lymph % (Auto) 37.8 % (20.0-40.0) 12/18/18 05:25 [place] % (Auto) 10.7 % (0.0-10.0) H 12/18/18 05:25 Eos % (Auto) 1.7 % (0.0-4.0) 12/18/18 05:25 Baso % (Auto) 0.5 % (0.0-2.0) 12/18/18 05:25 Neut # (Auto) 3.7 K/uL (1.8-7.0) 12/18/18 05:25 Lymph # (Auto) 2.8 K/uL (1.0-4.3) 12/18/18 05:25 [place] # (Auto) 0.8 K/uL (0.0-0.8) 12/18/18 05:25 Eos # (Auto) 0.1 K/uL (0.0-0.7) 12/18/18 05:25 Baso # (Auto) 0.0 K/uL (0.0-0.2) 12/18/18 05:25 PT 11.9 Seconds (9.8-13.1) 12/18/18 05:25 INR 1.0 12/18/18 05:25 APTT 28.9 Seconds (25.6-37.1) 12/18/18 05:25 Sodium 139 mmol/l (132-148) 01/02/19 05:30 Potassium 4.5 MMOL/L (3.6-5.0) 01/02/19 05:30 Chloride 99 mmol/L (98-107) 01/02/19 05:30 Carbon Dioxide 25 mmol/L (22-30) 01/02/19 05:30 Anion Gap 20 (10-20) 01/02/19 05:30 BUN 14 mg/dl (9-20) 01/02/19 05:30 Creatinine 0.7 mg/dl (0.8-1.5) L 01/02/19 05:30 Est GFR ( Amer) > 60 01/02/19 05:30 Est GFR (Non-Af Amer) > 60 01/02/19 05:30 Random Glucose 113 mg/dL (75-110) H 01/02/19 05:30 Calcium 9.7 mg/dL (8.4-10.2) 01/02/19 05:30 - Hospital Course Hospital Course: 53 yo male with no significant PMH [place] [facility] [place] because of acute CVA with left sided weakness. He was transferred to Acute Rehab on 12/17/2018 to continue PT/OT. Patient did well and now is ready for discharge. Discharge Exam - Head Exam Head Exam: ATRAUMATIC, NORMAL INSPECTION, NORMOCEPHALIC - Eye Exam Eye Exam: absent: Scleral icterus - ENT Exam ENT Exam: Mucous Membranes Moist - Respiratory Exam Respiratory Exam: absent: Rales, Rhonchi, Wheezes, Respiratory Distress - Cardiovascular Exam Cardiovascular Exam: REGULAR RHYTHM, +S1, +S2 - GI/Abdominal Exam GI & Abdominal Exam: Soft. absent: Tenderness - Rectal Exam Rectal Exam: Deferred - Neurological Exam Neurological exam: Alert, Oriented x3 - Psychiatric Exam Psychiatric exam: Normal Affect - Skin Skin Exam: Dry, Intact Discharge Plan - Discharge Medications Prescriptions: amLODIPine [Norvasc] 10 mg PO DAILY #30 tab Atorvastatin [Lipitor] 80 mg PO HS #30 tab Lisinopril [Zestril] 20 mg PO DAILY #30 tab - Follow Up Plan Condition: GOOD Disposition: HOME/ ROUTINE
== END 2019-01-02 13:00 | disposition home or self-care (01) | DRG 57 ==
PROVIDERS: ADMIT Internal Medicine; ATTEND Internal Medicine
PROC: F07M6FZ Therapeutic Exercise Treatment of Musculoskeletal System - Whole Body using Assistive, Adaptive, Supportive or Protective Equipment (ICD-10-PCS; principal; 2018-12-17)
PROC: F08Z4FZ Home Management Treatment using Assistive, Adaptive, Supportive or Protective Equipment (ICD-10-PCS; 2018-12-17)
DX: I69.354 Hemiplegia and hemiparesis following cerebral infarction affecting left non-dominant side (principal); Z82.3 Family history of stroke; Z83.3 Family history of diabetes mellitus; F17.210 Nicotine dependence, cigarettes, uncomplicated; F43.21 Adjustment disorder with depressed mood; F41.9 Anxiety disorder, unspecified; G47.00 Insomnia, unspecified; I10 Essential (primary) hypertension